=== PATIENT | female | born 1960 | race American Indian/Alaskan Native ===

== ENCOUNTER 2018-05-30 17:24 | Emergency (ER) | payer OTHER ==
[2018-05-30] MEDS ORDERED: Sodium Chloride 0.9% 1,000 ML IV ONE ×2 (19:23→21:55)
[2018-05-30] MEDS ORDERED: Ondansetron 4 MG/2 ML SDV IV ONE (19:23)
[2018-05-30] MEDS ORDERED: Sodium Chloride 0.9% 10 ML Syringe FLUSH PRN (19:23)
[2018-05-30] MEDS ORDERED: HYDROmorphone 0.5 MG/0.5 ML Syringe IVPUSH ONE ×2 (19:51→22:50)
[2018-05-30 20:29] LABS: ANION GAP 12.2; CHLORIDE,CL 97 mmol/L (101-111); SODIUM,NA 131 mmol/L (135-145)
[2018-05-30] MEDS ORDERED: Acetaminophen 325 MG Tab PO ONE (21:05)
--- NOTE | 2018-05-30 21:49 | EDM.PDOC ---
ED HPI GENERAL MEDICAL PROBLEM - General Chief Complaint: Upper Extremity Injury/Pain Stated Complaint: ELBOW PROBLEMS AND INFECTION ON LEG [id number] Time Seen by Provider: 05/30/18 19:18 Source of Information: Reports: Patient, RN, RN Notes Reviewed History Limitations: Reports: No Limitations - History of Present Illness INITIAL COMMENTS - FREE TEXT/NARRATIVE: Pt to ER with c/o chills, body aches, joint pain, since Thursday, progressively getting worse. Pt states last night she noticed her right elbow became inflamed, red, swollen, and painful. States all of her joints hurt, decreased appetite. Has been drinking broth and pedialyte. Patient admits to fever, chills, N/V/D, cough, headache. Denies chest pain, SOB. Onset: Gradual Right Elbow Pain Score (Numeric/FACES): 10 - Related Data Allergies Allergy/AdvReac Type Severity Reaction Status Date / Time shellfish derived Allergy Anaphylactic Verified 05/30/18 22:39 Shock Home Meds: Home Meds Albuterol Sulfate [Proair Hfa] 8.5 gm IH Q4H PRN 05/30/18 [History] Ranitidine HCl 150 mg PO BID 05/30/18 [History] Past Medical History - Past Health History Medical/Surgical History: Denies Medical/Surgical History HEENT History: Reports: Impaired Vision Other HEENT History: WEARS CORRECTIVE LENSES Cardiovascular History: Reports: None Respiratory History: Reports: Bronchitis, Recurrent Gastrointestinal History: Reports: GI Bleed Genitourinary History: Reports: None GRINDER LAP History: Reports: Fibroids, Musculoskeletal History: Reports: None Neurological History: Reports: None Psychiatric History: Reports: None Endocrine/Metabolic History: Reports: None Hematologic History: Reports: Blood Transfusion(s) Immunologic History: Reports: None Oncologic (Cancer) History: Reports: None Dermatologic History: Reports: Psoriasis Other Dermatologic History: DERMATITIS - Infectious Disease History Infectious Disease History: Reports: Chicken Pox - Past Surgical History Cardiovascular Surgical History: Reports: None Female Surgical History: Reports: Section Endocrine Surgical History: Reports: None Neurological Surgical History: Reports: None Musculoskeletal Surgical History: Reports: None Oncologic Surgical History: Reports: None Social & Family History - Family History HEENT: Reports: Impaired Vision Cardiac: Reports: CAD, Heart Murmur, Hypertension, Pacemaker Respiratory: Reports: COPD GI: Reports: None - Tobacco Use Smoking Status *Q: Former Smoker Used Tobacco, but Quit: Yes Month/Year Tobacco Last Used: 2011 - Caffeine Use Caffeine Use: Reports: Coffee Caffeine Use Comment: 4 CUPS TYPICAL - Recreational Drug Use Recreational Drug Use: No Review of Systems - Review of Systems Review Of Systems: ROS reveals no pertinent complaints other than HPI. ED EXAM, GENERAL - Physical Exam Exam: See Below Exam Limited By: No Limitations General Appearance: Alert, WD/WN, Moderate Distress Eye Exam: Bilateral Eye: EOMI, Normal Inspection Ears: Normal External Exam, Hearing Grossly Normal Nose: Normal Inspection Throat/Mouth: Normal Inspection, Normal Voice, No Airway Compromise Head: Atraumatic, Normocephalic Neck: Normal Inspection, Supple, Non-Tender, Full Range of Motion Respiratory/Chest: No Respiratory Distress, Lungs Clear, Normal Breath Sounds, No Accessory Muscle Use, Chest Non-Tender Cardiovascular: Normal Peripheral Pulses, Regular Rate, Rhythm, No Edema, No Gallop, No JVD, No Murmur, No Rub Peripheral Pulses: 2+: Radial (L), Radial (R) GI/Abdominal: Normal Bowel Sounds, Soft, Non-Tender (Female) Exam: Deferred Rectal (Female) Exam: Deferred Back Exam: Normal Inspection, Full Range of Motion Extremities: Normal Range of Motion, Joint Swelling (right elbow), Arm Pain ( right elbow), Increased Warmth (right elbow), Redness (right elbow) Neurological: Alert, Oriented, No Motor/Sensory Deficits Psychiatric: Anxious Skin Exam: Warm, Dry, Intact, Erythema (right elbow), Increased Warmth (right elbow) Lymphatic: No Adenopathy Course - Vital Signs Last Recorded V/S: Last Vital Signs Temp 98.2 F 05/31/18 00:30 Pulse 120 H 05/31/18 00:30 Resp 18 05/31/18 00:30 BP 107/65 05/31/18 00:30 Pulse Ox 98 05/31/18 00:30 - Orders/Labs/Meds Orders: Active Orders 24 hr Category Date Time Status Peripheral IV Care [RC] . DIRECTED Care 05/30/18 19:23 Active CULTURE BLOOD [BC] Stat Lab 05/30/18 19:30 Received CULTURE BLOOD [BC] Stat Lab 05/30/18 19:38 Received UA W/MICROSCOPIC [URIN] Stat Lab 05/30/18 21:11 Ordered Blood Culture x2 Reflex Set [OM.PC] Stat Oth 05/30/18 19:25 Ordered Peripheral IV Insertion Adult [OM.PC] Routine Ot 05/30/18 19:23 Ordered Labs: Laboratory Tests 05/30/18 05/30/18 05/30/18 Range/Units 19:30 19:30 19:30 WBC 17.4 H (5.0-10.0) 10^3/uL RBC 4.95 (4.2-5.4) 10^6/uL Hgb 14.3 (12.0-16.0) g/dL Hct 43.6 (37.0-47.0) % MCV 88.1 D (80-100) fL MCH 28.9 (27.0-34.0) pg MCHC 32.8 L (33.0-35.0) g/dL Plt Count 226 (150-450) 10^3/uL Neut % (Auto) 75.3 H (42.2-75.2) % Lymph % (Auto) 9.3 L (20.5-50.1) % [place] % (Auto) 15.3 H (2-8) % Eos % (Auto) 0.0 L (1.0-3.0) % Baso % (Auto) 0.1 (0.0-1.0) % Add Manual Diff Yes Neutrophils % (Manual) 77 H (42-75) % Lymphocytes % (Manual) 7 L (20-50) % Monocytes % (Manual) 16 H (2-8) % ESR (0-20) mm/hr Sodium 131 L (135-145) mmol/L Potassium 3.2 L (3.6-5.0) mmol/L Chloride 97 L (101-111) mmol/L Carbon Dioxide 25.0 (21.0-31.0) mmol/L Anion Gap 12.2 BUN 8 (7-18) mg/dL Creatinine 0.8 (0.6-1.3) mg/dL Est Cr Clr Drug Dosing 79.13 mL/min Estimated GFR (MDRD) > 60 BUN/Creatinine Ratio 10.00 Glucose 105 (74-105) mg/dL Lactic Acid 2.0 (0.5-2.2) mmol/L Calcium 8.2 L (8.4-10.2) mg/dl Total Bilirubin 1.0 (0.2-1.0) mg/dL AST 57 H (10-42) IU/L ALT 40 (10-60) IU/L Alkaline Phosphatase 112 (42-121) IU/L C-Reactive Protein (0.0-1.3) mg/dL Total Protein 8.0 (6.7-8.2) g/dl Albumin 2.9 L (3.2-5.5) g/dl Globulin 5.1 Albumin/Globulin Ratio 0.57 Urine Color (YELLOW) Urine Appearance (CLEAR) Urine pH (5.0-9.0) Ur Specific [place] (1.005-1.030) Urine Protein (NEGATIVE) Urine Glucose (UA) (NEGATIVE) Urine Ketones (NEGATIVE) Urine Occult Blood (NEGATIVE) Urine Nitrite (NEGATIVE) Urine Bilirubin (NEGATIVE) Urine Urobilinogen (0.2-1.0) mg/dL Ur Leukocyte Esterase (NEGATIVE) Urine RBC /HPF Urine WBC (0-5/HPF) /HPF Ur Epithelial Cells /HPF Urine Bacteria (0-FEW/HPF) /HPF Urinalysis Comment 05/30/18 05/30/18 05/30/18 Range/Units 19:30 19:30 21:11 WBC (5.0-10.0) 10^3/uL RBC (4.2-5.4) 10^6/uL Hgb (12.0-16.0) g/dL Hct (37.0-47.0) % MCV (80-100) fL MCH (27.0-34.0) pg MCHC (33.0-35.0) g/dL Plt Count (150-450) 10^3/uL Neut % (Auto) (42.2-75.2) % Lymph % (Auto) (20.5-50.1) % [place] % (Auto) (2-8) % Eos % (Auto) (1.0-3.0) % Baso % (Auto) (0.0-1.0) % Add Manual Diff Neutrophils % (Manual) (42-75) % Lymphocytes % (Manual) (20-50) % Monocytes % (Manual) (2-8) % ESR 34 H (0-20) mm/hr Sodium (135-145) mmol/L Potassium (3.6-5.0) mmol/L Chloride (101-111) mmol/L Carbon Dioxide (21.0-31.0) mmol/L Anion Gap BUN (7-18) mg/dL Creatinine (0.6-1.3) mg/dL Est Cr Clr Drug Dosing mL/min Estimated GFR (MDRD) BUN/Creatinine Ratio Glucose (74-105) mg/dL Lactic Acid (0.5-2.2) mmol/L Calcium (8.4-10.2) mg/dl Total Bilirubin (0.2-1.0) mg/dL AST (10-42) IU/L ALT (10-60) IU/L Alkaline Phosphatase (42-121) IU/L C-Reactive Protein 11.0 H (0.0-1.3) mg/dL Total Protein (6.7-8.2) g/dl Albumin (3.2-5.5) g/dl Globulin Albumin/Globulin Ratio Urine Color Yellow (YELLOW) Urine Appearance Slightly cloudy (CLEAR) Urine pH 6.0 (5.0-9.0) Ur Specific [place] <= 1.005 (1.005-1.030) Urine Protein 30 H (NEGATIVE) Urine Glucose (UA) Negative (NEGATIVE) Urine Ketones Negative (NEGATIVE) Urine Occult Blood Large H (NEGATIVE) Urine Nitrite Negative (NEGATIVE) Urine Bilirubin Negative (NEGATIVE) Urine Urobilinogen 0.2 (0.2-1.0) mg/dL Ur Leukocyte Esterase Trace H (NEGATIVE) Urine RBC >100 H /HPF Urine WBC 0-5 (0-5/HPF) /HPF Ur Epithelial Cells Moderate H /HPF Urine Bacteria Moderate H (0-FEW/HPF) /HPF Urinalysis Comment Meds: Medications Discontinued Medications Generic Name Dose Route Start Last Admin Trade Name Zacheryq PRN Reason Stop Dose Admin Acetaminophen 650 mg 05/30/18 21:05 05/30/18 21:26 Tylenol PO 05/30/18 21:06 650 mg NOW ONE Administration Hydromorphone HCl 0.5 mg 05/30/18 19:51 05/30/18 20:01 Dilaudid IVPUSH 05/30/18 19:52 0.5 mg ONETIME ONE Administration Hydromorphone HCl 0.5 mg 05/30/18 22:50 05/30/18 23:10 Dilaudid IVPUSH 05/30/18 22:51 0.5 mg ONETIME ONE Administration Sodium Chloride 1,000 mls @ 999 mls/hr 05/30/18 19:23 05/30/18 19:38 Normal Saline IV 05/30/18 20:23 999 mls/hr .BOLUS ONE Administration Piperacillin Sod/Tazobactam 100 mls @ 200 mls/hr 05/30/18 21:54 05/30/18 22: 02 Sod 3.375 gm/ Sodium Chloride IV 05/30/18 22:23 200 mls/hr ONETIME ONE Administration Vancomycin HCl 1 gm/ Sodium 250 mls @ 167 mls/hr 05/30/18 21:54 05/30/18 23: 05 Chloride IV 05/30/18 23:23 167 mls/hr ONETIME ONE Administration Sodium Chloride 1,000 mls @ 999 mls/hr 05/30/18 21:55 05/30/18 22:01 Normal Saline IV 05/30/18 22:55 999 mls/hr .BOLUS ONE Administration Ondansetron HCl 4 mg 05/30/18 19:23 05/30/18 19:37 Zofran IV 05/30/18 19:24 4 mg ONETIME ONE Administration Sodium Chloride 10 ml 05/30/18 19:23 05/30/18 19:38 Saline Flush FLUSH 10 ml ASDIRECTED PRN Administration Keep Vein Open - Radiology Interpretation Free Text/Narrative:: Right elbow CT: IMPRESSION: - No evidence for osteomyelitis or a septic arthritis on CT scan. MRI without and with contrast may be obtained if there is continuing clinical concern for these findings, if the patient has no contraindication. Findings suspicious for cellulitis/olecranon bursitis posterior to the elbow. - Incidental/non-acute findings are described above. THANK YOU FOR THIS CONSULTATION. Thank you for allowing us to participate in the care of your patient. Dictated and Authenticated by: Shy Dunlap MD 05/30/2018 9:47 PM Central Time ([place] & [place]) See rad report - Re-Assessments/Exams Free Text/Narrative Re-Assessment/Exam: 05/31/18 06:24 Dr. Nino called about the patient. After CT of the elbow, agreed to admit the patient acute inpatient. Admission then cancelled and Dr. Nino transferred the patient [facility]. Departure - Departure Time of Disposition: 21:53 Disposition: Home, Self-Care 01 Condition: Fair, Serious Clinical Impression: Cellulitis Qualifiers: Site of cellulitis: extremity Site of cellulitis of extremity: upper extremity Laterality: right Qualified Code(s): L03.113 - Cellulitis of right upper limb Bursitis Qualifiers: Bursitis location: elbow Elbow bursitis location: olecranon bursitis Laterality : right Qualified Code(s): M70.21 - Olecranon bursitis, right elbow - Discharge Information - My Orders Last 24 Hours: My Active Orders 05/30/18 19:23 Peripheral IV Care [RC] . DIRECTED Peripheral IV Insertion Adult [OM.PC] Routine 05/30/18 19:25 Blood Culture x2 Reflex Set [OM.PC] Stat 05/30/18 19:30 CULTURE BLOOD [BC] Stat 05/30/18 19:38 CULTURE BLOOD [BC] Stat 05/30/18 21:11 UA W/MICROSCOPIC [URIN] Stat - Assessment/Plan Last 24 Hours: My Active Orders 05/30/18 19:23 Peripheral IV Care [RC] . DIRECTED Peripheral IV Insertion Adult [OM.PC] Routine 05/30/18 19:25 Blood Culture x2 Reflex Set [OM.PC] Stat 05/30/18 19:30 CULTURE BLOOD [BC] Stat 05/30/18 19:38 CULTURE BLOOD [BC] Stat 05/30/18 21:11 UA W/MICROSCOPIC [URIN] Stat
[2018-05-30] MEDS ORDERED: Piperacillin/Tazobactam 3.375 GM in Sodium Chloride 0.9% 100 ML IV ONE (21:54)
[2018-05-30 21:59] VITALS: BP 107/65
--- NOTE | 2018-05-31 00:17 | PCM.SN ---
- Free Text/Narrative Note: I saw and evaluated Ms Burk, a 58-yo F with PMH of psoriasis who presented to the ED with fever (102.5 F) and right elbow swelling. WBC, ESR and CRP were all elevated. Due to concern for right elbow septic arthritis, transfer was arranged to [facility] for orthopedic evaluation, accepting Physician is Dr. Winslow. I discussed the case on phone with [facility] surgeon (Dr. Doty) and he agrees with this recommendation.
== END 2018-05-31 00:50 ==
LOC: DL.ED 17:24 → DL.MS 22:13 → UNDOADMIN 22:13 → UNDODISIN 05-31 00:50 → DL.ED 05-31 00:50
DX: L03.113 Cellulitis of right upper limb (principal); M70.21 Olecranon bursitis, right elbow; Z91.013 Allergy to seafood; Z87.891 Personal history of nicotine dependence
CPT/HCPCS: 36415; 73200; 80053; 81001; 83605; 85025; 85651; 86140; 87040; 87804; 96361; 96365; 96375; 99284; A9270; J1170; J2405; J2543; J3370; J7030; J7050

== ENCOUNTER 2018-12-07 16:24 | Emergency (ER) | payer OTHER ==
[2018-12-07] MEDS ORDERED: Sodium Chloride 0.9% 10 ML Syringe FLUSH PRN (17:19)
[2018-12-07] MEDS ORDERED: diphenhydrAMINE 50 MG/ML SDV IVPUSH ONE (17:20)
[2018-12-07] MEDS ORDERED: Morphine 4 MG/ML Syringe IVPUSH ONE (17:20)
[2018-12-07 18:13] LABS: CHLORIDE,CL 98 mmol/L (101-111); SODIUM,NA 133 mmol/L (135-145)
[2018-12-07] MEDS ORDERED: Iopamidol 612 MG/ML 75 ML Bottle IVPUSH ONE (18:33)
[2018-12-07] MEDS ORDERED: Morphine 2 MG/ML Syringe IVPUSH ONE (18:59)
--- NOTE | 2018-12-07 19:02 | EDM.PDOC ---
ED HPI GENERAL MEDICAL PROBLEM - General Chief Complaint: Abdominal Pain Stated Complaint: ABDOMINAL PAIN [id number] Time Seen by Provider: 12/07/18 17:19 Source of Information: Reports: Patient History Limitations: Reports: No Limitations - History of Present Illness INITIAL COMMENTS - FREE TEXT/NARRATIVE: patient comes emergency Department today with complaints of abdominal pain. Patient has an extensive history of a Whipple procedure that was done in the fall. She has a vertical incision that is still healing and draining a small amount. Yesterday when she was at work someone ran into her stomach with a door that was open. Since that time she has complained of a bandlike sensation of pain transversely across her abdomen. She's had no fever no chills. No nausea no vomiting. No hematuria dysuria or urinary frequency. No black or tarry stools. No change in the wound on her abdomen. Abdomen Pain Score (Numeric/FACES): 10 - Related Data Allergies Allergy/AdvReac Type Severity Reaction Status Date / Time shellfish derived Allergy Anaphylactic Verified 12/07/18 17:07 Shock Home Meds: Home Meds Ibuprofen [Motrin] 600 mg PO TID PRN #30 tablet 09/05/18 [Rx] LORazepam [Ativan] 0.5 mg PO Q6H PRN 09/28/18 [History] Magnesium Oxide 250 mg PO DAILY 09/28/18 [History] oxyCODONE 10 mg PO ASDIRECTED PRN 09/28/18 [History] Potassium Chloride 20 meq PO DAILY 09/30/18 [History] Acetaminophen/HYDROcodone [Emmett 325-10 MG] 1 tab PO Q6H PRN #30 tablet [Rx] Docusate Sodium [Colace] 100 mg PO DAILY PRN #30 capsule 10/13/18 [Rx] Albuterol Sulfate [Proair Hfa] 2 puff IH Q4HR PRN 12/07/18 [History] Multivitamin [Poly-Vitamin] 1 tab PO DAILY 12/07/18 [History] Past Medical History - Past Health History Medical/Surgical History: Denies Medical/Surgical History HEENT History: Reports: Impaired Vision Other HEENT History: WEARS CORRECTIVE LENSES Cardiovascular History: Reports: None Other Cardiovascular History: pt states murmur when young Respiratory History: Reports: Bronchitis, Recurrent Gastrointestinal History: Reports: GI Bleed Genitourinary History: Reports: None 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, Musculoskeletal History: Reports: Arthritis, Other (See Below) Neurological History: Reports: None Psychiatric History: Reports: None Endocrine/Metabolic History: Reports: None Hematologic History: Reports: Blood Transfusion(s) Immunologic History: Reports: None Oncologic (Cancer) History: Reports: None Other Oncologic History: Whipple procedure, 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 and r/o malignancy Dermatologic History: Reports: Psoriasis Other Dermatologic History: DERMATITIS - Infectious Disease History Infectious Disease History: Reports: Chicken Pox - Past Surgical History Cardiovascular Surgical History: Reports: None GI Surgical History: Reports: Other (See Below) Other GI Surgeries/Procedures: Whipple procedure Female Surgical History: Reports: Section Endocrine Surgical History: Reports: Other (See Below) Other Endocrine Surgeries/Procedures: States she had surgery Jul 2018 on her pancreaus Neurological Surgical History: Reports: None Musculoskeletal Surgical History: Reports: None, Other (See Below) Oncologic Surgical History: Reports: None Social & Family History - Family History Family Medical History: Noncontributory HEENT: Reports: Impaired Vision Cardiac: Reports: CAD, Heart Murmur, Hypertension, Pacemaker Respiratory: Reports: COPD GI: Reports: None - Tobacco Use Smoking Status *Q: Never Smoker Second Hand Smoke Exposure: No - Caffeine Use Caffeine Use: Reports: Coffee Caffeine Use Comment: 4 CUPS TYPICAL - Recreational Drug Use Recreational Drug Use: No - Living Situation & Occupation Living situation: Reports: with Family ED ROS GENERAL - Review of Systems Review Of Systems: ROS reveals no pertinent complaints other than HPI. ED EXAM, RENAL/ - Physical Exam Exam: See Below Exam Limited By: No Limitations General Appearance: Alert, WD/WN, No Apparent Distress Throat/Mouth: Normal Inspection, Normal Lips Head: Atraumatic, Normocephalic Neck: Normal Inspection, Supple, Non-Tender Respiratory/Chest: No Respiratory Distress, Lungs Clear, Normal Breath Sounds, No Accessory Muscle Use, Chest Non-Tender Cardiovascular: Normal Peripheral Pulses, Regular Rate, Rhythm GI/Abdominal: Normal Bowel Sounds, Soft, Tender (generalized tenderness around a well-healed vertical incision with a very small amount of drainage and no wound dehiscence otherwise. The drainage is clear. No rebound or guarding.) Back Exam: Normal Inspection, Full Range of Motion. No: CVA Tenderness (L), CVA Tenderness (R) Extremities: Normal Inspection, Normal Range of Motion Neurological: Alert, Oriented, Normal Cognition, No Motor/Sensory Deficits Psychiatric: Normal Affect, Normal Mood Skin Exam: Warm, Dry, Intact, Normal Color, No Rash Course - Vital Signs Last Recorded V/S: Last Vital Signs Temp 36.6 C 12/07/18 19:09 Pulse 82 12/07/18 19:09 Resp 16 12/07/18 19:09 BP 138/82 12/07/18 19:09 Pulse Ox 98 12/07/18 19:09 - Orders/Labs/Meds Labs: Laboratory Tests 12/07/18 12/07/18 12/07/18 Range/Units 17:47 17:47 17:47 WBC 6.1 (5.0-10.0) 10^3/uL RBC 3.87 L (4.2-5.4) 10^6/uL Hgb 10.9 L D (12.0-16.0) g/dL Hct 34.5 L (37.0-47.0) % MCV 89.1 D (80-100) fL MCH 28.2 (27.0-34.0) pg MCHC 31.6 L (33.0-35.0) g/dL Plt Count 346 D (150-450) 10^3/uL Neut % (Auto) 60.8 (42.2-75.2) % Lymph % (Auto) 31.6 (20.5-50.1) % [place] % (Auto) 5.7 (2-8) % Eos % (Auto) 1.6 (1.0-3.0) % Baso % (Auto) 0.3 (0.0-1.0) % Sodium 133 L (135-145) mmol/L Potassium 4.0 (3.6-5.0) mmol/L Chloride 98 L (101-111) mmol/L Carbon Dioxide 23.0 (21.0-31.0) mmol/L Anion Gap 16.0 BUN 11 (7-18) mg/dL Creatinine 0.6 (0.6-1.3) mg/dL Est Cr Clr Drug Dosing 91.09 mL/min Estimated GFR (MDRD) > 60 BUN/Creatinine Ratio 18.33 Glucose 99 (74-105) mg/dL Lactic Acid 1.1 (0.5-2.2) mmol/L Calcium 9.2 (8.4-10.2) mg/dl Total Bilirubin 0.5 (0.2-1.0) mg/dL AST 33 (10-42) IU/L ALT 12 (10-60) IU/L Alkaline Phosphatase 112 (42-121) IU/L C-Reactive Protein (0.0-1.3) mg/dL Total Protein 10.1 H (6.7-8.2) g/dl Albumin 4.1 (3.2-5.5) g/dl Globulin 6.0 Albumin/Globulin Ratio 0.68 Urine Color (YELLOW) Urine Appearance (CLEAR) Urine pH (5.0-9.0) Ur Specific [place] (1.005-1.030) Urine Protein (NEGATIVE) Urine Glucose (UA) (NEGATIVE) Urine Ketones (NEGATIVE) Urine Occult Blood (NEGATIVE) Urine Nitrite (NEGATIVE) Urine Bilirubin (NEGATIVE) Urine Urobilinogen (0.2-1.0) mg/dL Ur Leukocyte Esterase (NEGATIVE) Urine RBC /HPF Urine WBC (0-5/HPF) /HPF Ur Epithelial Cells /HPF Urine Bacteria (0-FEW/HPF) /HPF 12/07/18 12/07/18 Range/Units 17:47 18:40 WBC (5.0-10.0) 10^3/uL RBC (4.2-5.4) 10^6/uL Hgb (12.0-16.0) g/dL Hct (37.0-47.0) % MCV (80-100) fL MCH (27.0-34.0) pg MCHC (33.0-35.0) g/dL Plt Count (150-450) 10^3/uL Neut % (Auto) (42.2-75.2) % Lymph % (Auto) (20.5-50.1) % [place] % (Auto) (2-8) % Eos % (Auto) (1.0-3.0) % Baso % (Auto) (0.0-1.0) % Sodium (135-145) mmol/L Potassium (3.6-5.0) mmol/L Chloride (101-111) mmol/L Carbon Dioxide (21.0-31.0) mmol/L Anion Gap BUN (7-18) mg/dL Creatinine (0.6-1.3) mg/dL Est Cr Clr Drug Dosing mL/min Estimated GFR (MDRD) BUN/Creatinine Ratio Glucose (74-105) mg/dL Lactic Acid (0.5-2.2) mmol/L Calcium (8.4-10.2) mg/dl Total Bilirubin (0.2-1.0) mg/dL AST (10-42) IU/L ALT (10-60) IU/L Alkaline Phosphatase (42-121) IU/L C-Reactive Protein 0.6 (0.0-1.3) mg/dL Total Protein (6.7-8.2) g/dl Albumin (3.2-5.5) g/dl Globulin Albumin/Globulin Ratio Urine Color Yellow (YELLOW) Urine Appearance Clear (CLEAR) Urine pH 7.0 (5.0-9.0) Ur Specific [place] 1.010 (1.005-1.030) Urine Protein Negative (NEGATIVE) Urine Glucose (UA) Negative (NEGATIVE) Urine Ketones Negative (NEGATIVE) Urine Occult Blood Trace-lysed H (NEGATIVE) Urine Nitrite Negative (NEGATIVE) Urine Bilirubin Negative (NEGATIVE) Urine Urobilinogen 0.2 (0.2-1.0) mg/dL Ur Leukocyte Esterase Negative (NEGATIVE) Urine RBC 0-5 /HPF Urine WBC 0-5 (0-5/HPF) /HPF Ur Epithelial Cells Rare /HPF Urine Bacteria Rare (0-FEW/HPF) /HPF Meds: Medications Discontinued Medications Generic Name Dose Route Start Last Admin Trade Name Freq PRN Reason Stop Dose Admin Diphenhydramine HCl 25 mg 12/07/18 17:20 12/07/18 17:40 Benadryl IVPUSH 12/07/18 17:21 25 mg ONETIME ONE Administration Iopamidol 75 ml 12/07/18 18:33 12/07/18 18:35 Isovue-300 (61%) IVPUSH 12/07/18 18:34 75 ml ONETIME ONE Administration Morphine Sulfate 4 mg 12/07/18 17:20 12/07/18 17:39 Morphine IVPUSH 12/07/18 17:21 4 mg ONETIME ONE Administration Morphine Sulfate 2 mg 12/07/18 18:59 12/07/18 19:06 Morphine IVPUSH 12/07/18 19:00 2 mg ONETIME ONE Administration Sodium Chloride 10 ml 12/07/18 17:19 12/07/18 17:40 Saline Flush FLUSH 10 ml ASDIRECTED PRN Administration Keep Vein Open - Radiology Interpretation Free Text/Narrative:: CT abdomen and pelvis no acute findings per radiology. - Re-Assessments/Exams Free Text/Narrative Re-Assessment/Exam: 12/07/18 IV benadryl and morphine with good relief of the pain. Labs rather unremarkable CT scan as well. relayed to the patient that I'm unsure of what's causing her pain if she has a bruise or some type of cold muscle from this reported trauma. I do not find any pathology emergent at this time that needs intervention. Her wound appears healing very well and is not dehisced. She is comfortable with discharge at this time and her questions were answered. Departure - Departure Time of Disposition: 19:00 Disposition: Home, Self-Care 01 Clinical Impression: Abdominal pain - Discharge Information Instructions: Abdominal Pain, Adult, [id number], Pain Medicine Instructions, [id number] Referrals: PCP,None [Primary Care Provider] - Forms: ED Department Discharge Additional Instructions: Tylenol for pain. Contact Dr. Kody Morris office in the morning. Return to the ED if new or worsening symptoms.
[2018-12-07 19:10] VITALS: BP 138/82
== END 2018-12-07 20:44 | disposition home or self-care (01) ==
LOC: DL.ED 16:24
DX: R10.84 Generalized abdominal pain (principal); Z91.013 Allergy to seafood; Z79.899 Other long term (current) drug therapy
CPT/HCPCS: 36415; 74177; 80053; 81001; 83605; 85025; 86140; 96374; 96375; 96376; 99284; J1200; J2270; Q9967

== ENCOUNTER 2018-12-22 12:28 | Emergency (ER) | payer OTHER ==
[2018-12-22 12:41] VITALS: BP 131/65
--- NOTE | 2018-12-22 12:47 | EDM.PDOC ---
ED HPI GENERAL MEDICAL PROBLEM - General Stated Complaint: HURT LEFT HAND Time Seen by Provider: 12/22/18 12:35 Source of Information: Reports: Patient History Limitations: Reports: No Limitations - History of Present Illness INITIAL COMMENTS - FREE TEXT/NARRATIVE: This 58 yo female patient reports to the ED with right hand pain and swelling. The patient reports she was attempting to staple some papers yesterday at work and hit the tape dispenser. Since that time, the patient has had some swelling in her hand and pain in the area. The patient reports she has been icing the area since the incident. Onset Date: 12/21/18 Duration: Constant Location: Reports: Upper Extremity, Right Quality: Reports: Ache, Dull Severity: Mild Improves with: Reports: None Worsens with: Reports: Movement Right Hand Pain Score (Numeric/FACES): 2 - Related Data Allergies Allergy/AdvReac Type Severity Reaction Status Date / Time shellfish derived Allergy Anaphylactic Verified 12/22/18 12:36 Shock Home Meds: Home Meds Ibuprofen [Motrin] 600 mg PO TID PRN #30 tablet 09/05/18 [Rx] LORazepam [Ativan] 0.5 mg PO Q6H PRN 09/28/18 [History] Magnesium Oxide 250 mg PO DAILY 09/28/18 [History] oxyCODONE 10 mg PO ASDIRECTED PRN 09/28/18 [History] Potassium Chloride 20 meq PO DAILY 09/30/18 [History] Acetaminophen/HYDROcodone [Parker 325-10 MG] 1 tab PO Q6H PRN #30 tablet [Rx] Docusate Sodium [Colace] 100 mg PO DAILY PRN #30 capsule 10/13/18 [Rx] Albuterol Sulfate [Proair Hfa] 2 puff IH Q4HR PRN 12/07/18 [History] Multivitamin [Poly-Vitamin] 1 tab PO DAILY 12/07/18 [History] Acetaminophen [Tylenol] 650 mg PO Q4H PRN 12/22/18 [History] Past Medical History - Past Health History Medical/Surgical History: Denies Medical/Surgical History HEENT History: Reports: Impaired Vision Other HEENT History: WEARS CORRECTIVE LENSES Cardiovascular History: Reports: None Other Cardiovascular History: pt states murmur when young Respiratory History: Reports: Bronchitis, Recurrent Gastrointestinal History: Reports: GI Bleed Genitourinary History: Reports: None 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: Reports: Fibroids, Musculoskeletal History: Reports: Arthritis, Other (See Below) Neurological History: Reports: None Psychiatric History: Reports: None Endocrine/Metabolic History: Reports: None Hematologic History: Reports: Blood Transfusion(s) Immunologic History: Reports: None Oncologic (Cancer) History: Reports: None Other Oncologic History: Whipple procedure, 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 and r/o malignancy Dermatologic History: Reports: Psoriasis Other Dermatologic History: DERMATITIS - Infectious Disease History Infectious Disease History: Reports: Chicken Pox - Past Surgical History Cardiovascular Surgical History: Reports: None GI Surgical History: Reports: Other (See Below) Other GI Surgeries/Procedures: Whipple procedure Female Surgical History: Reports: Section Endocrine Surgical History: Reports: Other (See Below) Other Endocrine Surgeries/Procedures: States she had surgery Jul 2018 on her pancreaus Neurological Surgical History: Reports: None Musculoskeletal Surgical History: Reports: None, Other (See Below) Oncologic Surgical History: Reports: None Social & Family History - Family History Family Medical History: Noncontributory HEENT: Reports: Impaired Vision Cardiac: Reports: CAD, Heart Murmur, Hypertension, Pacemaker Respiratory: Reports: COPD GI: Reports: None - Caffeine Use Caffeine Use: Reports: Coffee Caffeine Use Comment: 4 CUPS TYPICAL - Living Situation & Occupation Living situation: Reports: with Family Review of Systems - Review of Systems Review Of Systems: ROS reveals no pertinent complaints other than HPI. ED EXAM, GENERAL - Physical Exam Exam: See Below Exam Limited By: No Limitations General Appearance: Alert, WD/WN, Mild Distress Eye Exam: Bilateral Eye: EOMI, Normal Inspection, PERRL Ears: Normal External Exam, Normal Canal, Hearing Grossly Normal, Normal TMs Nose: Normal Inspection Throat/Mouth: Normal Inspection, Normal Lips, Normal Teeth, Normal Gums, Normal Oropharynx, Normal Voice, No Airway Compromise Head: Atraumatic, Normocephalic Neck: Normal Inspection, Supple, Non-Tender, Full Range of Motion Respiratory/Chest: No Respiratory Distress, Lungs Clear, Normal Breath Sounds, No Accessory Muscle Use, Chest Non-Tender Cardiovascular: Normal Peripheral Pulses, Regular Rate, Rhythm, No Edema, No Gallop, No JVD, No Murmur, No Rub GI/Abdominal: Normal Bowel Sounds, Soft, Non-Tender, No Organomegaly, No Distention, No Abnormal Bruit, No Mass (Female) Exam: Deferred Rectal (Female) Exam: Deferred Back Exam: Normal Inspection, Full Range of Motion, NT Extremities: Other (right hand swelling and pain) Neurological: Alert, Oriented, CN II-XII Intact, Normal Cognition, Normal Gait, Normal Reflexes, No Motor/Sensory Deficits Psychiatric: Normal Affect, Normal Mood Skin Exam: Warm, Dry, Intact, Normal Color, No Rash Lymphatic: No Adenopathy Course - Vital Signs Last Recorded V/S: Last Vital Signs Temp 36.7 C 12/22/18 12:38 Pulse 86 12/22/18 12:38 Resp 16 12/22/18 12:38 BP 131/65 12/22/18 12:38 Pulse Ox 100 12/22/18 12:38 - Orders/Labs/Meds Orders: Active Orders 24 hr Category Date Time Status Hand Comp Min 3V Rt [CR] Urgent Exams 12/22/18 12:37 Ordered Departure - Departure Time of Disposition: 12:48 Disposition: Home, Self-Care 01 Condition: Fair Clinical Impression: Contusion of right hand Qualifiers: Encounter type: initial encounter Qualified Code(s): S60.221A - Contusion of right hand, initial encounter - Discharge Information *PRESCRIPTION DRUG MONITORING PROGRAM REVIEWED*: Not Applicable *COPY OF PRESCRIPTION DRUG MONITORING REPORT IN PATIENT KARISHMA: Not Applicable Instructions: Hand Contusion, [id number] Forms: ED Department Discharge Care Plan Goals: The patient was advised of the examination and x-ray results during the visit. The patient was given an JACKI wrap for support. The patient was encouraged to rest, ice and elevate her extremity for the next 24 hours. The patient may take Tylenol or ibuprofen for temporary symptom relief. If the patient has any additional symptoms the patient should visit her primary care facility or return to the emergency department. - My Orders Last 24 Hours: My Active Orders 12/22/18 12:37 Hand Comp Min 3V Rt [CR] Urgent - Assessment/Plan Last 24 Hours: My Active Orders 12/22/18 12:37 Hand Comp Min 3V Rt [CR] Urgent
== END 2018-12-22 13:05 | disposition home or self-care (01) ==
LOC: DL.ED 12:28
DX: S60.221A Contusion of right hand, initial encounter (principal); Z91.013 Allergy to seafood; Z79.899 Other long term (current) drug therapy; W22.8XXA Striking against or struck by other objects, initial encounter; Y99.0 Civilian activity done for income or pay
CPT/HCPCS: 73130-RT; 99283

== ENCOUNTER 2019-08-12 06:23 | Day surgery (SDC) | payer MEDICAID, OTHER ==
[~2019-08-12 06:23] MED LIST: Dextrose 5%-0.45% NaCl 1,000 ML IV SCH; Midazolam 1 MG/ML 2 ML SDV ONE; Sodium Chloride 0.9% 10 ML Syringe FLUSH PRN; fentaNYL 100 MCG/2 ML SDV ONE
[2019-08-12] MEDS ORDERED: fentaNYL 100 MCG/2 ML SDV IV ONE ×3 (06:24→07:19)
[2019-08-12] MEDS ORDERED: Midazolam 1 MG/ML 2 ML SDV IV ONE ×3 (06:24→07:21)
[2019-08-12 10:22] VITALS: BP 141/70; PULSE 57
--- NOTE | 2019-08-12 13:41 | OR ---
DATE: 08/12/2019 PROCEDURES: Esophagogastroduodenoscopy and multiple pinch biopsies. INSTRUMENT USED: [id number] Olympus video panendoscope. PREMEDICATIONS: No oral or topical anesthesia used. Fentanyl 100 mcg intravenous, Versed 1.5 mg intravenous. The procedure was done under pulse oximetry, BP recording, and monitor technician. INDICATION: The patient with previous pancreatic and gastric surgical procedures with persistent upper abdominal pain, bloating as well as heartburn, unexplained and not responsive to medical measures, on acid suppressant. The esophagogastroduodenoscopy is performed for detection of any active erosive lesions, malignancy also under consideration, H. pylori status to be determined, endoscopic hemostasis therapy if needed. PROCEDURE IN DETAIL: The scope was passed with ease. Adequate visualization of the esophagus was made from proximal to distal areas. No upper esophageal lesions identified. No distal esophageal stricture. No uphill or downhill esophageal varices. No Gwen-Parada tear. Grade A erosive changes were noted by Bracken criteria. No esophageal polyp or tumor mass identified. Z-line was seen at around 39 cm distal to the oral verge, configuration consistent with grade 1 by ZAP classification. No proximal gastric varices noted. Gastric fundus examination by retroflexion showed no polypoid lesions. No gastric ulcer, malignant mass, or vascular ectasia identified. Gastric surgical site was found to be quite deformed and dense adhesions around prevented further advancement of the instrument to visualize areas of the small bowel. Multiple pinch biopsies were taken from the distal and proximal gastric mucosa and sent for PyloriTek test for H. pylori, and if negative in an hour, the tissue is to be sent for histopathology. No bleeding was noted from any of the visualized areas at the completion of examination. Photographs were taken of the surgical site, gastric fundus, as well as distal esophagus. IMPRESSION: 1. Status post gastric surgery. 2. Anastomotic stricture. 3. Grade A gastroesophageal reflux disease. The patient tolerated the procedure well. [facility] /[id number]
== END 2019-08-12 09:41 | disposition home or self-care (01) ==
LOC: DL.ENDO 06:23
PROVIDERS: ATTEND Internal Medicine Gastroenterology
DX: K21.0 Gastro-esophageal reflux disease with esophagitis (principal); B96.81 Helicobacter pylori [H. pylori] as the cause of diseases classified elsewhere; K91.89 Other postprocedural complications and disorders of digestive system; L40.9 Psoriasis, unspecified; Z86.010 Personal history of colon polyps
CPT/HCPCS: 43239; 87077; J2250; J3010; J7042

== ENCOUNTER 2020-05-13 18:30 | Emergency (ER) | payer MEDICAID, OTHER ==
[2020-05-13] MEDS ORDERED: LORazepam 2 MG/ML SDV IVPUSH ONE (18:51)
[2020-05-13] MEDS ORDERED: Metoclopramide 10 MG/2 ML SDV IVPUSH ONE (18:51)
[2020-05-13] MEDS ORDERED: Sodium Chloride 0.9% 1,000 ML IV SCH (19:00)
[2020-05-13 19:01] VITALS: BP 157/96; PULSE 105
[2020-05-13 19:10] LABS: ANION GAP 13.9 mEq/L (7-13); CHLORIDE,CL 101 mmol/L (98-107); SODIUM,NA 138 mmol/L (136-145)
[2020-05-13] MEDS ORDERED: Iopamidol 612 MG/ML 100 ML Bottle IVPUSH ONE (20:19)
--- NOTE | 2020-05-13 21:30 | CT ---
PROCEDURE INFORMATION: Exam: CT Abdomen And Pelvis With Contrast Exam date and time: 05/13/2020 8:35 PM Age: 60 years old Clinical indication: Other: Pain; Additional info: Nausea vomiting pain, prior whipple TECHNIQUE: Imaging protocol: Computed tomography of the abdomen and pelvis with intravenous contrast. Radiation optimization: All CT scans at this facility use at least one of these dose optimization techniques: automated exposure control; mA and/or kV adjustment per patient size (includes targeted exams where dose is matched to clinical indication); or iterative reconstruction. Contrast material: [id number]; Contrast volume: 75 ml; Contrast route: INTRAVENOUS (IV); COMPARISON: MR Abdomen wo Cont 07/28/2019 9:05 AM FINDINGS: Lungs: No lung base abnormality noted. Liver: 8 mm low-density nodule noted in the right lobe of the liver, likely a benign simple hepatic cyst. Gallbladder and bile ducts: Previous cholecystectomy. Limited pneumobilia Pancreas: Punctate calcifications in the pancreas suggest old pancreatitis. Spleen: Normal. No splenomegaly. Adrenals: Normal. No mass. Kidneys and ureters: Normal. No hydronephrosis. Stomach and bowel: The hernia sac contains both large and small intestinal loops. No incarceration. No intestinal obstruction. Previous Whipple procedure. Appendix: Normal appendix. No appendicitis. Intraperitoneal space: See "Soft tissues" finding. Vasculature: Mild arterial sclerosis with multifocal plaque. Portal vein diameter approximate 17 mm, slightly higher than normal. Possible portal venous hypertension. Lymph nodes: Slight prominence of lymph nodes with minor stranding noted in this area of the amadou hepatis, nonspecific. Bladder: Unremarkable as visualized. Reproductive: Dominant unilocular cyst noted in the left ovary, 3.5 cm diameter. Such cysts are not normal in a postmenopausal patient. Bones/joints: Unremarkable. No acute fracture. Soft tissues: Abdominal wall hernia noted in the midline, with 7.2 cm hernia sac. Opening into this hernia sac is broad. IMPRESSION: 1. Small benign simple hepatic cyst in the liver, 8 mm diameter. 2. Cholecystectomy. Pneumobilia. Bile ducts normal in size. 3. Slight prominence of lymph nodes and stranding noted within the amadou hepatis area, possibly related to previous Whipple procedure. 4. Normal appendix. No appendicitis. 5. 3.5 cm simple cyst in the left ovary, not normal in a postmenopausal patient. This cyst was 18 mm in diameter in an MRI from July 2019. 6. Abdominal wall hernia detailed above, without incarceration or obstruction. 7. Old pancreatitis with punctate pancreatic calcifications. 8. No significant change in the CT exam compared to June 15, 2019. 9. No visible recurrent or residual malignancy.
--- NOTE | 2020-05-13 21:36 | EDM.PDOC ---
ED HPI GENERAL MEDICAL PROBLEM - General Chief Complaint: Gastrointestinal Problem Stated Complaint: VOMITING Time Seen by Provider: 05/13/20 18:50 Source of Information: Reports: Patient, RN History Limitations: Reports: No Limitations - History of Present Illness INITIAL COMMENTS - FREE TEXT/NARRATIVE: ED with c/o severe abdominal pain around old incision. Hx whipple procedure with complications. Is scheduled to have scar revision on Thursday in [place]. Yesterday weak. no fever or chills. No urinary c/o No cough. Today ate part of piece of toast and started vomiting. Unable to keep home medications down. Has not tried Zofran since it doesn't work. Pain worse with movement. Last BM yesterday. Middle Abdomen Pain Score (Numeric/FACES): 10 - Related Data Allergies Allergy/AdvReac Type Severity Reaction Status Date / Time shellfish derived Allergy Anaphylactic Verified 05/13/20 18:39 Shock Home Meds: Home Meds LORazepam [Ativan] 0.5 mg PO Q6H PRN 09/28/18 [History] Magnesium Oxide 250 mg PO DAILY 09/28/18 [History] Potassium Chloride 20 meq PO DAILY 09/30/18 [History] Docusate Sodium [Colace] 100 mg PO DAILY PRN #30 capsule 10/13/18 [Rx] Albuterol Sulfate [Proair Hfa] 2 puff IH Q4HR PRN 12/07/18 [History] Multivitamin [Poly-Vitamin] 1 tab PO DAILY 12/07/18 [History] Ibuprofen 600 mg PO TID PRN 08/11/19 [History] Lidocaine/Prilocaine [EMLA Crm] 1 squirt TOP ASDIRECTED 08/11/19 [History] Ondansetron [Zofran ODT] 4 mg PO Q4H PRN 08/11/19 [History] Triamcinolone Acetonide [Kenalog 0.1% Crm] 1 squirt TOP TID PRN 08/11/19 [History] diphenhydrAMINE [Benadryl] 25 mg PO Q6H 08/11/19 [History] Past Medical History - Past Health History Medical/Surgical History: Denies Medical/Surgical History HEENT History: Reports: Impaired Vision Other HEENT History: WEARS CORRECTIVE LENSES Cardiovascular History: Reports: Heart Murmur Other Cardiovascular History: pt states murmur when young Respiratory History: Reports: Bronchitis, Recurrent Gastrointestinal History: Reports: GI Bleed, Pancreatitis, Other (See Below) Other Gastrointestinal History: Chronic vomiting. Narrowing at stomach opening. Umbilical hernia. Significant abd. 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, Musculoskeletal History: Reports: Arthritis, Back Pain, Chronic Neurological History: Reports: None Psychiatric History: Reports: Anxiety Endocrine/Metabolic History: Reports: None Hematologic History: Reports: Blood Transfusion(s) Immunologic History: Reports: None Oncologic (Cancer) History: Reports: Pancreatic Other Oncologic History: Whipple procedure, 08/17/18 Dermatologic History: Reports: Psoriasis Other Dermatologic History: DERMATITIS - Infectious Disease History Infectious Disease History: Reports: Chicken Pox - Past Surgical History Head Surgeries/Procedures: Reports: None HEENT Surgical History: Reports: None Cardiovascular Surgical History: Reports: None Respiratory Surgical History: Reports: None GI Surgical History: Reports: EGD, Other (See Below) Other GI Surgeries/Procedures: Whipple procedure Female Surgical History: Reports: Section Other Female Surgeries/Procedures: x 3 Endocrine Surgical History: Reports: Other (See Below) Other Endocrine Surgeries/Procedures: States she had surgery Jul 2018 on her pancreaus, Whipple surgery Neurological Surgical History: Reports: None Musculoskeletal Surgical History: Reports: None Dermatological Surgical History: Reports: None Social & Family History - Family History Family Medical History: Noncontributory HEENT: Reports: Impaired Vision Cardiac: Reports: CAD, Heart Murmur, Hypertension, Pacemaker Respiratory: Reports: COPD GI: Reports: None - Tobacco Use Smoking Status *Q: Never Smoker Second Hand Smoke Exposure: No - Caffeine Use Caffeine Use: Reports: None Caffeine Use Comment: 3 CUPS TYPICAL - Recreational Drug Use Recreational Drug Use: No - Living Situation & Occupation Living situation: Reports: with Family ED ROS GENERAL - Review of Systems Review Of Systems: Comprehensive ROS is negative, except as noted in HPI. ED EXAM, GI/ABD - Physical Exam Exam: See Below Exam Limited By: No Limitations General Appearance: Alert, Anxious, Moderate Distress, Thin Eyes: Bilateral: EOMI Ears: Normal External Exam Nose: Normal Inspection Throat/Mouth: Normal Inspection, Normal Lips Head: Atraumatic, Normocephalic Neck: Normal Inspection Respiratory/Chest: No Respiratory Distress, Lungs Clear, Normal Breath Sounds Cardiovascular: Normal Peripheral Pulses, Regular Rate, Rhythm GI/Abdominal Exam: Normal Bowel Sounds, Soft, Tender (generalized greater midline near incision). No: Distended, Guarding, Mass Back Exam: Normal Inspection Extremities: Normal Inspection, Normal Range of Motion, Non-Tender Neurological: Alert, Oriented, Normal Cognition Psychiatric: Anxious Skin Exam: Warm, Dry, Intact, Normal Color, No Rash Course - Vital Signs Last Recorded V/S: Last Vital Signs Temp 98 F 05/13/20 18:32 Pulse 105 H 05/13/20 18:32 Resp 20 05/13/20 18:32 BP 157/96 H 05/13/20 18:32 Pulse Ox 97 05/13/20 18:32 - Orders/Labs/Meds Orders: Active Orders 24 hr Category Date Time Status CULTURE BLOOD [BC] Stat Lab 05/13/20 19:09 Received Labs: Laboratory Tests 05/13/20 05/13/20 05/13/20 Range/Units 18:44 18:44 18:44 WBC 8.9 (5.0-10.0) 10^3/uL RBC 4.27 (4.2-5.4) 10^6/uL Hgb 12.8 (12.0-16.0) g/dL Hct 38.7 (37.0-47.0) % MCV 90.6 (80-100) fL MCH 30.0 (27.0-34.0) pg MCHC 33.1 (33.0-35.0) g/dL Plt Count 299 (150-450) 10^3/uL Neut % (Auto) 68.5 (42.2-75.2) % Lymph % (Auto) 22.6 (20.5-50.1) % [place] % (Auto) 6.9 (2-8) % Eos % (Auto) 1.7 (1.0-3.0) % Baso % (Auto) 0.3 (0.0-1.0) % Sodium 138 (136-145) mmol/L Potassium 3.9 (3.5-5.1) mmol/L Chloride 101 (98-107) mmol/L Carbon Dioxide 27 (21-32) mmol/L Anion Gap 13.9 H (7-13) mEq/L BUN 6 L (7-18) mg/dL Creatinine 0.80 (0.55-1.02) mg/dL Est Cr Clr Drug Dosing 77.18 mL/min Estimated GFR (MDRD) > 60 BUN/Creatinine Ratio 7.5 (No establ ref range) Glucose 119 H (74-99) mg/dL Lactic Acid 1.3 (0.4-2.0) mmol/L Calcium 8.8 (8.5-10.1) mg/dL Magnesium 2.0 (1.8-2.4) mg/dL Total Bilirubin 0.8 (0.2-1.0) mg/dL AST 134 H (15-37) U/L ALT 75 H (14-59) U/L Alkaline Phosphatase 133 H (46-116) U/L Total Protein 9.3 H (6.4-8.2) g/dL Albumin 3.3 L (3.4-5.0) g/dL Globulin 6.0 Albumin/Globulin Ratio 0.55 Amylase 73 (25-115) U/L Lipase 246 (73-393) U/L Urine Color (YELLOW) Urine Appearance (CLEAR) Urine pH (5.0-9.0) Ur Specific [place] (1.005-1.030) Urine Protein (NEGATIVE) Urine Glucose (UA) (NEGATIVE) Urine Ketones (NEGATIVE) Urine Occult Blood (NEGATIVE) Urine Nitrite (NEGATIVE) Urine Bilirubin (NEGATIVE) Urine Urobilinogen (0.2-1.0) mg/dL Ur Leukocyte Esterase (NEGATIVE) Urine RBC /HPF Urine WBC (0-5/HPF) /HPF Ur Epithelial Cells (NOT SEEN) /HPF Amorphous Sediment (NOT SEEN) /HPF Urine Bacteria (0-FEW/HPF) /HPF Urine Mucus (NOT SEEN) /LPF Urine Opiates Screen (NEGATIVE) Ur Oxycodone Screen (NEGATIVE) Urine Methadone Screen (NEGATIVE) Ur Barbiturates Screen (NEGATIVE) U Tricyclic Antidepress (NEGATIVE) Ur Phencyclidine Scrn (NEGATIVE) Ur Amphetamine Screen (NEGATIVE) U Methamphetamines Scrn (NEGATIVE) Urine MDMA Screen (NEGATIVE) U Benzodiazepines Scrn (NEGATIVE) Urine Cocaine Screen (NEGATIVE) U Marijuana (THC) Screen (NEGATIVE) 05/13/20 05/13/20 Range/Units 19:34 19:34 WBC (5.0-10.0) 10^3/uL RBC (4.2-5.4) 10^6/uL Hgb (12.0-16.0) g/dL Hct (37.0-47.0) % MCV (80-100) fL MCH (27.0-34.0) pg MCHC (33.0-35.0) g/dL Plt Count (150-450) 10^3/uL Neut % (Auto) (42.2-75.2) % Lymph % (Auto) (20.5-50.1) % [place] % (Auto) (2-8) % Eos % (Auto) (1.0-3.0) % Baso % (Auto) (0.0-1.0) % Sodium (136-145) mmol/L Potassium (3.5-5.1) mmol/L Chloride (98-107) mmol/L Carbon Dioxide (21-32) mmol/L Anion Gap (7-13) mEq/L BUN (7-18) mg/dL Creatinine (0.55-1.02) mg/dL Est Cr Clr Drug Dosing mL/min Estimated GFR (MDRD) BUN/Creatinine Ratio (No establ ref range) Glucose (74-99) mg/dL Lactic Acid (0.4-2.0) mmol/L Calcium (8.5-10.1) mg/dL Magnesium (1.8-2.4) mg/dL Total Bilirubin (0.2-1.0) mg/dL AST (15-37) U/L ALT (14-59) U/L Alkaline Phosphatase (46-116) U/L Total Protein (6.4-8.2) g/dL Albumin (3.4-5.0) g/dL Globulin Albumin/Globulin Ratio Amylase (25-115) U/L Lipase (73-393) U/L Urine Color Dark yellow (YELLOW) Urine Appearance Slightly cloudy (CLEAR) Urine pH 7.0 (5.0-9.0) Ur Specific [place] 1.020 (1.005-1.030) Urine Protein Negative (NEGATIVE) Urine Glucose (UA) Negative (NEGATIVE) Urine Ketones Negative (NEGATIVE) Urine Occult Blood Moderate H (NEGATIVE) Urine Nitrite Negative (NEGATIVE) Urine Bilirubin Negative (NEGATIVE) Urine Urobilinogen 0.2 (0.2-1.0) mg/dL Ur Leukocyte Esterase Negative (NEGATIVE) Urine RBC 50-75 H /HPF Urine WBC 0-5 (0-5/HPF) /HPF Ur Epithelial Cells Few (NOT SEEN) /HPF Amorphous Sediment Rare (NOT SEEN) /HPF Urine Bacteria Few (0-FEW/HPF) /HPF Urine Mucus Few H (NOT SEEN) /LPF Urine Opiates Screen Negative (NEGATIVE) Ur Oxycodone Screen Negative (NEGATIVE) Urine Methadone Screen Negative (NEGATIVE) Ur Barbiturates Screen Negative (NEGATIVE) U Tricyclic Antidepress Negative (NEGATIVE) Ur Phencyclidine Scrn Negative (NEGATIVE) Ur Amphetamine Screen Negative (NEGATIVE) U Methamphetamines Scrn Negative (NEGATIVE) Urine MDMA Screen Negative (NEGATIVE) U Benzodiazepines Scrn Negative (NEGATIVE) Urine Cocaine Screen Negative (NEGATIVE) U Marijuana (THC) Screen Negative (NEGATIVE) Meds: Medications Discontinued Medications Generic Name Dose Route Start Last Admin Trade Name Freq PRN Reason Stop Dose Admin Sodium Chloride 1,000 mls @ 250 mls/hr 05/13/20 19:00 05/13/20 19:05 Normal Saline IV 250 mls/hr ASDIRECTED FABIEN Administration Iopamidol 100 ml 05/13/20 20:19 05/13/20 20:20 Isovue-300 (61%) IVPUSH 05/13/20 20:20 100 ml ONETIME ONE Administration Lorazepam 1 mg 05/13/20 18:51 05/13/20 19:08 Ativan IVPUSH 05/13/20 18:52 1 mg ONETIME ONE Administration Metoclopramide HCl 10 mg 05/13/20 18:51 05/13/20 19:05 Reglan IVPUSH 05/13/20 18:52 10 mg ONETIME ONE Administration - Re-Assessments/Exams Free Text/Narrative Re-Assessment/Exam: More relaxed, pain improved. Given results of CT. Home with family. Departure - Departure Time of Disposition: 21:33 Disposition: Home, Self-Care 01 Condition: Good Clinical Impression: Nausea and vomiting in adult Abdominal pain Qualifiers: Abdominal location: unspecified location Qualified Code(s): R10.9 - Unspecified abdominal pain - Discharge Information *PRESCRIPTION DRUG MONITORING PROGRAM REVIEWED*: No *COPY OF PRESCRIPTION DRUG MONITORING REPORT IN PATIENT KARISHMA: No Instructions: Abdominal Pain, Adult, [id number] Referrals: PCP,None [Primary Care Provider] - Forms: ED Department Discharge Additional Instructions: liquid diet follow up for surgery as scheduled home medication as ordered zofran 4mg ODT every 4 hours as needed for nausea Sepsis Event Note (ED) - Evaluation Sepsis Screening Result: No Definite Risk - Focused Exam Vital Signs: Vital Signs Temp Pulse Resp BP Pulse Ox 05/13/20 18:32 98 F 105 H 20 157/96 H 97 - My Orders Last 24 Hours: My Active Orders 05/13/20 19:09 CULTURE BLOOD [BC] Stat - Assessment/Plan Last 24 Hours: My Active Orders 05/13/20 19:09 CULTURE BLOOD [BC] Stat
== END 2020-05-13 21:45 | disposition home or self-care (01) ==
LOC: DL.ED 18:30
DX: R10.84 Generalized abdominal pain (principal); R11.2 Nausea with vomiting, unspecified; F41.9 Anxiety disorder, unspecified; M19.90 Unspecified osteoarthritis, unspecified site; Z98.890 Other specified postprocedural states; Z91.013 Allergy to seafood; Z79.899 Other long term (current) drug therapy
CPT/HCPCS: 36415; 74177; 80053; 80305; 81001; 82150; 83605; 83690; 83735; 85025; 87040; 96361; 96374; 96375; 99284; J2060; J2765; J7030; Q9967

== ENCOUNTER 2020-06-03 19:57 | Emergency (ER) | payer MEDICAID ==
[2020-06-03] MEDS ORDERED: Ondansetron 4 MG Tab.DIS PO ONE (19:58)
[2020-06-03 20:37] VITALS: BP 135/78; PULSE 108
[2020-06-03] MEDS ORDERED: Ondansetron 4 MG/2 ML SDV IVPUSH ONE ×2 (21:50→22:54)
[2020-06-03] MEDS ORDERED: Sodium Chloride 0.9% 1,000 ML IV ONE (21:50)
--- NOTE | 2020-06-03 22:02 | EDM.PDOC ---
<Werner Dang - Last Filed: 06/03/20 23:44> ED HPI GENERAL MEDICAL PROBLEM - General Chief Complaint: Gastrointestinal Problem Stated Complaint: VOMITING, THROWING UP. INCESIONS INFECTIONS Time Seen by Provider: 06/03/20 21:54 Source of Information: Reports: Patient History Limitations: Reports: No Limitations - History of Present Illness INITIAL COMMENTS - FREE TEXT/NARRATIVE: Patient arrives today due to abdominal pain, vomiting, and nausea. She is s/p herniorrhaphy on 05/15/2020. She complains that she has generalized abdominal pain, 10/10, and is associated with vomiting, nausea, and chills. She reports that her surgeon in [place] has referred her to a doctor for an EGD and it is planned for this week. She has Zofran at home but has not been able to take it due to the vomiting. 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 (see below) Other Treatments CURRENCY MACHINE OPERATOR: none Abdominal Pain Score (Numeric/FACES): 10 - Related Data Allergies Allergy/AdvReac Type Severity Reaction Status Date / Time shellfish derived Allergy Anaphylactic Verified 06/03/20 20:38 Shock Home Meds: Home Meds LORazepam [Ativan] 0.5 mg PO Q6H PRN 09/28/18 [History] Magnesium Oxide 250 mg PO DAILY 09/28/18 [History] Potassium Chloride 20 meq PO DAILY 09/30/18 [History] Docusate Sodium [Colace] 100 mg PO DAILY PRN #30 capsule 10/13/18 [Rx] Albuterol Sulfate [Proair Hfa] 2 puff IH Q4HR PRN 12/07/18 [History] Ibuprofen 600 mg PO TID PRN 08/11/19 [History] Ondansetron [Zofran ODT] 4 mg PO Q4H PRN 08/11/19 [History] Triamcinolone Acetonide [Kenalog 0.1% Crm] 1 squirt TOP TID PRN 08/11/19 [History] diphenhydrAMINE [Benadryl] 25 mg PO Q6H 08/11/19 [History] Calcium 06/03/20 [History] Vitamin D 06/03/20 [History] Past Medical History - Past Health History Medical/Surgical History: Denies Medical/Surgical History HEENT History: Reports: Impaired Vision Other HEENT History: WEARS CORRECTIVE LENSES Cardiovascular History: Reports: Heart Murmur Other Cardiovascular History: pt states murmur when young Respiratory History: Reports: Bronchitis, Recurrent Gastrointestinal History: Reports: GI Bleed, Pancreatitis, Other (See Below) Other Gastrointestinal History: Chronic vomiting. Narrowing at stomach opening. Umbilical hernia. Significant abd. 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 abdominal hernia repair 06/14/20 Female Surgical History: Reports: Section Other Female Surgeries/Procedures: x 3 Endocrine Surgical History: Reports: Other (See Below) Other Endocrine Surgeries/Procedures: States she had surgery Jul 2018 on her pancreaus, Whipple surgery Neurological Surgical History: Reports: None Musculoskeletal Surgical History: Reports: None Dermatological Surgical History: Reports: None Social & Family History - Family History Family Medical History: Noncontributory HEENT: Reports: Impaired Vision Cardiac: Reports: CAD, Heart Murmur, Hypertension, Pacemaker Respiratory: Reports: COPD GI: Reports: None - Tobacco Use Smoking Status *Q: Never Smoker - Caffeine Use Caffeine Use: Reports: None Caffeine Use Comment: 3 CUPS TYPICAL - Recreational Drug Use Recreational Drug Use: No - Living Situation & Occupation Living situation: Reports: with Family ED ROS GENERAL - Review of Systems Review Of Systems: Comprehensive ROS is negative, except as noted in HPI. ED EXAM, GI/ABD - Physical Exam Exam: See Below Exam Limited By: No Limitations General Appearance: Alert, WD/WN, Mild Distress Ears: Normal External Exam, Hearing Grossly Normal Nose: Normal Inspection, No Blood Head: Atraumatic Respiratory/Chest: No Respiratory Distress, Lungs Clear, Normal Breath Sounds Cardiovascular: Normal Peripheral Pulses, Regular Rate, Rhythm GI/Abdominal Exam: Normal Bowel Sounds, Soft, No Distention, Tender, Other (Generalized abdominal tenderness, midline surgical scar is nonerythematous with no signs of dehiscense or infection. Steri strips still on.) Extremities: Normal Inspection, Normal Range of Motion Neurological: Alert, Oriented, Normal Cognition Psychiatric: Tearful Skin Exam: Warm, Dry Course - Re-Assessments/Exams Free Text/Narrative Re-Assessment/Exam: 06/03/20 23:28 Patient was given 2 doses of 4mg IV Zofran. Nausea is much improved and will give 650mg PO tylenol at this time for pain. Departure - Departure Time of Disposition: 23:34 Disposition: Home, Self-Care 01 Clinical Impression: Nausea Abdominal pain Qualifiers: Abdominal location: unspecified location Qualified Code(s): R10.9 - Unspecified abdominal pain - Discharge Information *PRESCRIPTION DRUG MONITORING PROGRAM REVIEWED*: No *COPY OF PRESCRIPTION DRUG MONITORING REPORT IN PATIENT KARISHMA: No Instructions: Nausea and Vomiting, Adult, [id number] Referrals: PCP,None [Ordering Only Provider] - Forms: ED Department Discharge Additional Instructions: You have been prescribed Zofran 8mg every 8 hours as needed for Nausea. You can use Tylenol as needed for pain. It is very important that you make your future appointments for further evaluation of your abdominal pain. Sepsis Event Note (ED) - Evaluation Sepsis Screening Result: No Definite Risk <Letha Arriaga - Last Filed: 06/04/20 00:38> Course - Vital Signs Last Recorded V/S: Last Vital Signs Temp 97.4 F 06/03/20 20:14 Pulse 108 H 06/03/20 20:14 Resp 18 06/03/20 20:14 BP 135/78 06/03/20 20:14 Pulse Ox 96 06/03/20 20:14 - Orders/Labs/Meds Labs: Laboratory Tests 06/03/20 06/03/20 06/03/20 Range/Units 22:10 22:10 22:10 WBC 8.5 (5.0-10.0) 10^3/uL RBC 4.19 L (4.2-5.4) 10^6/uL Hgb 12.3 (12.0-16.0) g/dL Hct 37.1 (37.0-47.0) % MCV 88.5 (80-100) fL MCH 29.4 (27.0-34.0) pg MCHC 33.2 (33.0-35.0) g/dL Plt Count 324 (150-450) 10^3/uL Neut % (Auto) 67.5 (42.2-75.2) % Lymph % (Auto) 19.2 L (20.5-50.1) % [place] % (Auto) 10.3 H (2-8) % Eos % (Auto) 2.5 (1.0-3.0) % Baso % (Auto) 0.5 (0.0-1.0) % Sodium 132 L (136-145) mmol/L Potassium 3.2 L (3.5-5.1) mmol/L Chloride 94 L (98-107) mmol/L Carbon Dioxide 25 (21-32) mmol/L Anion Gap 16.2 H (7-13) mEq/L BUN 8 (7-18) mg/dL Creatinine 0.72 (0.55-1.02) mg/dL Est Cr Clr Drug Dosing 82.77 mL/min Estimated GFR (MDRD) > 60 BUN/Creatinine Ratio 11.1 (No establ ref range) Glucose 101 H (74-99) mg/dL Calcium 8.9 (8.5-10.1) mg/dL Total Bilirubin 0.6 (0.2-1.0) mg/dL AST 121 H (15-37) U/L ALT 112 H (14-59) U/L Alkaline Phosphatase 122 H (46-116) U/L Total Protein 9.1 H (6.4-8.2) g/dL Albumin 3.3 L (3.4-5.0) g/dL Globulin 5.8 Albumin/Globulin Ratio 0.57 Amylase 81 (25-115) U/L Lipase 367 (73-393) U/L Meds: Medications Discontinued Medications Generic Name Dose Route Start Last Admin Trade Name Freq PRN Reason Stop Dose Admin Acetaminophen 650 mg 06/03/20 22:32 06/03/20 23:32 Tylenol PO 06/03/20 22:33 650 mg NOW ONE Administration Acetaminophen Confirm 06/03/20 23:32 06/04/20 00:00 Tylenol Administered 06/03/20 23:33 Not Given Dose 650 mg .ROUTE .STK-MED ONE Sodium Chloride 1,000 mls @ 999 mls/hr 06/03/20 21:50 06/03/20 22:00 Normal Saline IV 06/03/20 22:50 999 mls/hr .BOLUS ONE Administration Ondansetron HCl 4 mg 06/03/20 21:50 06/03/20 22:08 Zofran IVPUSH 06/03/20 21:51 4 mg ONETIME ONE Administration Ondansetron HCl 4 mg 06/03/20 22:54 06/03/20 23:01 Zofran IVPUSH 06/03/20 22:55 4 mg ONETIME ONE Administration Ondansetron HCl Confirm 06/03/20 23:35 06/04/20 00:01 Zofran Odt Administered 06/03/20 23:36 Not Given Dose 8 mg .ROUTE .STK-MED ONE - Re-Assessments/Exams Free Text/Narrative Re-Assessment/Exam: 06/04/20 00:38 I saw and evaluated the patient. Discussed with resident and agree with residents findings and plan as documented in the residents note. Sepsis Event Note (ED) - Focused Exam Vital Signs: Vital Signs Temp Pulse Resp BP Pulse Ox 06/03/20 20:14 97.4 F 108 H 18 135/78 96
[2020-06-03] MEDS ORDERED: Acetaminophen 325 MG Tab PO ONE (22:32)
[2020-06-03 22:33] LABS: ANION GAP 16.2 mEq/L (7-13); CHLORIDE,CL 94 mmol/L (98-107); SODIUM,NA 132 mmol/L (136-145)
[2020-06-03] MEDS ORDERED: Acetaminophen 325 MG Tab ONE (23:32)
[2020-06-03] MEDS ORDERED: Ondansetron 4 MG Tab.DIS ONE (23:35)
== END 2020-06-03 23:57 | disposition home or self-care (01) ==
LOC: DL.ED 19:57
DX: R10.84 Generalized abdominal pain (principal); R11.2 Nausea with vomiting, unspecified; M19.90 Unspecified osteoarthritis, unspecified site; F41.9 Anxiety disorder, unspecified; Z91.013 Allergy to seafood; Z79.899 Other long term (current) drug therapy
CPT/HCPCS: 36415; 80053; 82150; 83690; 85025; 96361; 96374; 96376; 99284; A9270; J2405; J7030

== ENCOUNTER 2021-06-01 12:50 | Emergency (ER) | payer MEDICAID ==
[2021-06-01 13:17] VITALS: BP 131/49; PULSE 106
[2021-06-01 14:01] LABS: PTT,PARTIAL THROMBOPLSTIN TIME 26.5 SEC (22.0-34.0)
[2021-06-01 14:09] LABS: ANION GAP 15.9 mEq/L (7-13); CHLORIDE,CL 95 mmol/L (98-107); SODIUM,NA 131 mmol/L (136-145)
--- NOTE | 2021-06-01 14:22 | CR ---
PROCEDURE INFORMATION: Exam: XR Chest Exam date and time: 06/01/2021 1:36 PM Age: 61 years old Clinical indication: Chest wall pain; Additional info: Chest pain TECHNIQUE: Imaging protocol: XR of the chest. Views: 1 view. COMPARISON: CR Chest 1V Frontal 09/28/2018 2:44 PM FINDINGS: Lungs: There is mild increase in interstitial markings within the lungs. This is nonspecific. No pneumonia or pulmonary edema is present. Pleural spaces: Unremarkable. No pleural effusion. No pneumothorax. Heart/Mediastinum: Unremarkable. No cardiomegaly. Bones/joints: Unremarkable. IMPRESSION: Mild nonspecific chronic interstitial change. No acute cardiopulmonary disease present.
--- NOTE | 2021-06-01 15:36 | EDM.PDOC ---
ED HPI GENERAL MEDICAL PROBLEM - General Chief Complaint: Cardiovascular Problem Stated Complaint: [id number] VOMITING HEART DOESNT FEEL GOOD BEATING Time Seen by Provider: 06/01/21 13:30 Source of Information: Reports: Patient, RN, RN Notes Reviewed History Limitations: Reports: No Limitations - History of Present Illness INITIAL COMMENTS - FREE TEXT/NARRATIVE: Aubrey is a 61 y/o female who presents to the ED via personal vehicle with complaints of general malaise, vomiting, and palpitations. The patient reports her vomiting started approximately two days ago; she has vomited approximately three times in the past 48 hours. The patient reports history of vomiting without nausea due to multiple bowel and gastric surgeries. She states she noticed a rapid heartbeat this morning and became concerned that her electrolytes were low as that has happened to her in the past. She denies fever, shaking chills, syncope, vision changes, headache, weakness, chest pain, shortness of breath, nausea, constipation, diarrhea, or dysuria. The patient does attest to suprapubic tenderness. She has not taken any medication for her symptoms. She denies tobacco, alcohol, or recreational drug use. Generalized Pain Score (Numeric/FACES): 8 - Related Data Allergies Allergy/AdvReac Type Severity Reaction Status Date / Time shellfish derived Allergy Anaphylactic Verified 06/01/21 13:17 Shock Home Meds: Home Meds LORazepam [Ativan] 0.5 mg PO Q6H PRN 09/28/18 [History] Magnesium Oxide 250 mg PO DAILY 09/28/18 [History] Potassium Chloride 20 meq PO DAILY 09/30/18 [History] Docusate Sodium [Colace] 100 mg PO DAILY PRN #30 capsule 10/13/18 [Rx] Albuterol Sulfate [Proair Hfa] 2 puff IH Q4HR PRN 12/07/18 [History] Ondansetron [Zofran ODT] 4 mg PO Q4H PRN 08/11/19 [History] Triamcinolone Acetonide [Kenalog 0.1% Crm] 1 squirt TOP TID PRN 08/11/19 [History] diphenhydrAMINE [Benadryl] 25 mg PO Q6H 08/11/19 [History] Calcium 1 tab PO DAILY 06/03/20 [History] Vitamin D 06/03/20 [History] Past Medical History - Past Health History Medical/Surgical History: Denies Medical/Surgical History HEENT History: Reports: Impaired Vision Other HEENT History: WEARS CORRECTIVE LENSES Cardiovascular History: Reports: Heart Murmur Other Cardiovascular History: pt states murmur when young Respiratory History: Reports: Bronchitis, Recurrent Gastrointestinal History: Reports: GI Bleed, Pancreatitis, Other (See Below) Other Gastrointestinal History: Chronic vomiting. Narrowing at stomach opening. Umbilical hernia. Significant abd. 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 abdominal hernia repair 06/14/20 Female Surgical History: Reports: Section Other Female Surgeries/Procedures: x 3 Endocrine Surgical History: Reports: Other (See Below) Other Endocrine Surgeries/Procedures: States she had surgery Jul 2018 on her pancreaus, Whipple surgery Neurological Surgical History: Reports: None Musculoskeletal Surgical History: Reports: None Oncologic Surgical History: Reports: None Dermatological Surgical History: Reports: None Social & Family History - Family History Family Medical History: No Pertinent Family History HEENT: Reports: Impaired Vision Cardiac: Reports: CAD, Heart Murmur, Hypertension, Pacemaker Respiratory: Reports: COPD GI: Reports: None - Tobacco Use Tobacco Use Status *Q: Never Tobacco User Second Hand Smoke Exposure: No - Caffeine Use Caffeine Use: Reports: Coffee Caffeine Use Comment: 3 CUPS TYPICAL - Recreational Drug Use Recreational Drug Use: No - Living Situation & Occupation Living situation: Reports: with Family ED ROS GENERAL - Review of Systems Review Of Systems: Comprehensive ROS is negative, except as noted in HPI. ED EXAM, GENERAL - Physical Exam Exam: See Below Exam Limited By: No Limitations General Appearance: Alert, No Apparent Distress Eye Exam: Bilateral Eye: EOMI, Normal Inspection, PERRL Ears: Normal External Exam, Hearing Grossly Normal Nose: Normal Inspection, Normal Mucosa, No Blood Throat/Mouth: Normal Inspection, Normal Lips, Normal Teeth, Normal Gums, Normal Oropharynx, Normal Voice, No Airway Compromise Head: Atraumatic, Normocephalic Neck: Normal Inspection, Supple, Non-Tender, Full Range of Motion. No: Lymphadenopathy (L), Lymphadenopathy (R) Respiratory/Chest: No Respiratory Distress, Lungs Clear, Normal Breath Sounds, No Accessory Muscle Use, Chest Non-Tender Cardiovascular: Normal Peripheral Pulses, Regular Rate, Rhythm, No Edema, No Gallop, No JVD, No Murmur, No Rub Peripheral Pulses: 2+: Radial (L), Radial (R), Dorsalis Pedis (L), Dorsalis Pedis (R) GI/Abdominal: Normal Bowel Sounds, Soft, No Distention, No Abnormal Bruit, No Mass, Pelvis Stable, Tender (To LLQ and suprapubic region), Other (Multiple old surgical scars) (Female) Exam: Deferred Rectal (Female) Exam: Deferred Back Exam: Normal Inspection, Full Range of Motion. No: CVA Tenderness (L), CVA Tenderness (R) Extremities: Normal Inspection, Normal Range of Motion, Non-Tender, Normal Capillary Refill, No Pedal Edema Neurological: Alert, Oriented, CN II-XII Intact, Normal Cognition, Normal Gait, No Motor/Sensory Deficits Psychiatric: Normal Affect, Normal Mood Skin Exam: Warm, Dry, Intact, Normal Color, No Rash. No: Cyanosis, Jaundice, Mottled, Pallor #1 Interpretation EKG Date: 06/01/21 Time: 13:13 Rhythm: Other (Sinus Tachycardia) Rate (Beats/Min): 101 Clear: Normal P-Wave: Present QRS: Normal ST-T: Normal QT: Normal TN/PQ Interval: 0.136 Comparison: No Change ((09-13-18)) EKG Interpretation Comments: NT; q-wave in III and aVF; No evidence of acute myocardial ischemia Course - Vital Signs Last Recorded V/S: Last Vital Signs Temp 97.3 F 06/01/21 13:03 Pulse 106 H 06/01/21 13:03 Resp 20 06/01/21 13:03 BP 131/49 L 06/01/21 13:03 Pulse Ox 98 06/01/21 13:03 - Orders/Labs/Meds Labs: Laboratory Tests 06/01/21 06/01/21 06/01/21 Range/Units 13:31 13:31 13:31 WBC 8.2 (5.0-10.0) 10^3/uL RBC 3.88 L (4.2-5.4) 10^6/uL Hgb 11.5 L (12.0-16.0) g/dL Hct 34.6 L (37.0-47.0) % MCV 89.2 (80-100) fL MCH 29.6 (27.0-34.0) pg MCHC 33.2 (33.0-35.0) g/dL Plt Count 274 (150-450) 10^3/uL Neut % (Auto) 70.2 (42.2-75.2) % Lymph % (Auto) 20.5 (20.5-50.1) % Hand % (Auto) 7.6 (2-8) % Eos % (Auto) 1.3 (1.0-3.0) % Baso % (Auto) 0.4 (0.0-1.0) % PT 11.4 (9.0-12.0) SEC INR 1.1 (0.9-1.2) APTT 26.5 (22.0-34.0) SEC Sodium 131 L (136-145) mmol/L Potassium 3.9 (3.5-5.1) mmol/L Chloride 95 L (98-107) mmol/L Carbon Dioxide 24 (21-32) mmol/L Anion Gap 15.9 H (7-13) mEq/L BUN 5 L (7-18) mg/dL Creatinine 0.90 (0.55-1.02) mg/dL Est Cr Clr Drug Dosing 65.38 mL/min Estimated GFR (MDRD) > 60 BUN/Creatinine Ratio 5.6 (No establ ref range) Glucose 114 H (70-99) mg/dL Lactic Acid (0.4-2.0) mmol/L Calcium 8.5 (8.5-10.1) mg/dL Magnesium 1.7 L (1.8-2.4) mg/dL Total Bilirubin 0.9 (0.2-1.0) mg/dL AST 85 H (15-37) U/L ALT 24 (14-59) U/L Alkaline Phosphatase 151 H (46-116) U/L Troponin I High Sens 7 (<=51) pg/mL C-Reactive Protein 0.9 (0.0-0.9) mg/dL B-Natriuretic Peptide 122 H (0-100) pg/ml Total Protein 9.3 H (6.4-8.2) g/dL Albumin 2.7 L (3.4-5.0) g/dL Globulin 6.6 Albumin/Globulin Ratio 0.41 Urine Color (YELLOW) Urine Appearance (CLEAR) Urine pH (5.0-9.0) Ur Specific [place] (1.005-1.030) Urine Protein (NEGATIVE) Urine Glucose (UA) (NEGATIVE) Urine Ketones (NEGATIVE) Urine Occult Blood (NEGATIVE) Urine Nitrite (NEGATIVE) Urine Bilirubin (NEGATIVE) Urine Urobilinogen (0.2-1.0) mg/dL Ur Leukocyte Esterase (NEGATIVE) Urine RBC /HPF Urine WBC (0-5/HPF) /HPF Ur Epithelial Cells (NOT SEEN) /HPF Urine Bacteria (0-FEW/HPF) /HPF Urine Opiates Screen (NEGATIVE) Ur Oxycodone Screen (NEGATIVE) Urine Methadone Screen (NEGATIVE) Ur Barbiturates Screen (NEGATIVE) U Tricyclic Antidepress (NEGATIVE) Ur Phencyclidine Scrn (NEGATIVE) Ur Amphetamine Screen (NEGATIVE) U Methamphetamines Scrn (NEGATIVE) Urine MDMA Screen (NEGATIVE) U Benzodiazepines Scrn (NEGATIVE) Urine Cocaine Screen (NEGATIVE) U Marijuana (THC) Screen (NEGATIVE) Ethyl Alcohol < 3 (0) mg/dL 06/01/21 06/01/21 06/01/21 Range/Units 13:31 15:50 15:50 WBC (5.0-10.0) 10^3/uL RBC (4.2-5.4) 10^6/uL Hgb (12.0-16.0) g/dL Hct (37.0-47.0) % MCV (80-100) fL MCH (27.0-34.0) pg MCHC (33.0-35.0) g/dL Plt Count (150-450) 10^3/uL Neut % (Auto) (42.2-75.2) % Lymph % (Auto) (20.5-50.1) % Hand % (Auto) (2-8) % Eos % (Auto) (1.0-3.0) % Baso % (Auto) (0.0-1.0) % PT (9.0-12.0) SEC INR (0.9-1.2) APTT (22.0-34.0) SEC Sodium (136-145) mmol/L Potassium (3.5-5.1) mmol/L Chloride (98-107) mmol/L Carbon Dioxide (21-32) mmol/L Anion Gap (7-13) mEq/L BUN (7-18) mg/dL Creatinine (0.55-1.02) mg/dL Est Cr Clr Drug Dosing mL/min Estimated GFR (MDRD) BUN/Creatinine Ratio (No establ ref range) Glucose (70-99) mg/dL Lactic Acid 1.9 (0.4-2.0) mmol/L Calcium (8.5-10.1) mg/dL Magnesium (1.8-2.4) mg/dL Total Bilirubin (0.2-1.0) mg/dL AST (15-37) U/L ALT (14-59) U/L Alkaline Phosphatase (46-116) U/L Troponin I High Sens (<=51) pg/mL C-Reactive Protein (0.0-0.9) mg/dL B-Natriuretic Peptide (0-100) pg/ml Total Protein (6.4-8.2) g/dL Albumin (3.4-5.0) g/dL Globulin Albumin/Globulin Ratio Urine Color Yellow (YELLOW) Urine Appearance Slightly cloudy (CLEAR) Urine pH 7.0 (5.0-9.0) Ur Specific [place] 1.015 (1.005-1.030) Urine Protein Negative (NEGATIVE) Urine Glucose (UA) Negative (NEGATIVE) Urine Ketones Negative (NEGATIVE) Urine Occult Blood Moderate H (NEGATIVE) Urine Nitrite Negative (NEGATIVE) Urine Bilirubin Negative (NEGATIVE) Urine Urobilinogen 1.0 (0.2-1.0) mg/dL Ur Leukocyte Esterase Trace H (NEGATIVE) Urine RBC 20-30 H /HPF Urine WBC 0-5 (0-5/HPF) /HPF Ur Epithelial Cells Moderate H (NOT SEEN) /HPF Urine Bacteria Few (0-FEW/HPF) /HPF Urine Opiates Screen Negative (NEGATIVE) Ur Oxycodone Screen Negative (NEGATIVE) Urine Methadone Screen Negative (NEGATIVE) Ur Barbiturates Screen Negative (NEGATIVE) U Tricyclic Antidepress Negative (NEGATIVE) Ur Phencyclidine Scrn Negative (NEGATIVE) Ur Amphetamine Screen Negative (NEGATIVE) U Methamphetamines Scrn Negative (NEGATIVE) Urine MDMA Screen Negative (NEGATIVE) U Benzodiazepines Scrn Negative (NEGATIVE) Urine Cocaine Screen Negative (NEGATIVE) U Marijuana (THC) Screen Negative (NEGATIVE) Ethyl Alcohol (0) mg/dL Meds: Medications Discontinued Medications Generic Name Dose Route Start Last Admin Trade Name Freq PRN Reason Stop Dose Admin Ciprofloxacin 500 mg 06/01/21 16:38 06/01/21 16:56 Ciprofloxacin 500 Mg Tab PO 06/01/21 16:39 500 mg ONETIME ONE Administration - Radiology Interpretation Free Text/Narrative:: [facility] Final Radiology Report Call: [phone] assistance Online chat: [email or web address] Name: AUBREY ELLIOTT Age: 61Years F Date: 06/01/2021 SSN: -- : 1960 Study: CR CHEST 1V FRONTAL Requesting Physician: Mariana Ramachandran Images: 1 Addl Studies: Provided Clinical History: Chest pain Contrast: Contrast Medium: Contrast Amount: Contrast Method: CONFIDENTIALITY STATEMENT This report is intended only for use by the referring physician, and only in accordance with law. If you received this in error, call [phone]. Page 1 of 1 PROCEDURE INFORMATION: Exam: XR Chest Exam date and time: 06/01/2021 1:36 PM Age: 61 years old Clinical indication: Chest wall pain; Additional info: Chest pain TECHNIQUE: Imaging protocol: XR of the chest. Views: 1 view. COMPARISON: CR Chest 1V Frontal 09/28/2018 2:44 PM FINDINGS: Lungs: There is mild increase in interstitial markings within the lungs. This is nonspecific. No pneumonia or pulmonary edema is present. Pleural spaces: Unremarkable. No pleural effusion. No pneumothorax. Heart/Mediastinum: Unremarkable. No cardiomegaly. Bones/joints: Unremarkable. IMPRESSION: Mild nonspecific chronic interstitial change. No acute cardiopulmonary disease present. Thank you for allowing us to participate in the care of your patient. Dictated and Authenticated by: Daniel Kramer MD 06/01/2021 2:21 PM Central Time ([place] & [place]) - Re-Assessments/Exams Free Text/Narrative Re-Assessment/Exam: 06/01/21 Findings of examination and lab work reviewed with patient. Will treat UTI with Cipro. Discussed supportive cares for UTI, as well as dietary options for mild hyponatremia and hypomagnesemia. Red flag signs and symptoms which would warrant reevaluation reviewed. Patient verbalized understanding and agreement with the plan of care. Departure - Departure Time of Disposition: 16:39 Disposition: Home, Self-Care 01 Condition: Good Clinical Impression: Hyponatremia, Hypomagnesemia Urinary tract infection Qualifiers: Urinary tract infection type: acute cystitis Hematuria presence: with hematuria Qualified Code(s): N30.01 - Acute cystitis with hematuria Vomiting Qualifiers: Vomiting type: unspecified Vomiting Intractability: non-intractable Nausea presence: without nausea Qualified Code(s): R11.11 - Vomiting without nausea Instructions: Hyponatremia, Hypomagnesemia Referrals: PCP,None [Primary Care Provider] - Forms: ED Department Discharge Additional Instructions: Rx: Ciprofloxacin 1.) Take all of your antibiotic until gone, even as symptoms improve. 2.) Eat foods high in magnesium. 3.) Continue taking your previously prescribed Zofran. 4.) Follow up with primary care provider early this coming week regarding today's visit, or return to the emergency department should symptoms worsen. Sepsis Event Note (ED) - Evaluation Sepsis Screening Result: No Definite Risk
[2021-06-01] MEDS ORDERED: Ciprofloxacin 500 MG Tab PO ONE (16:38)
== END 2021-06-01 17:00 | disposition home or self-care (01) ==
LOC: DL.ED 12:50
DX: N30.01 Acute cystitis with hematuria (principal); R11.11 Vomiting without nausea; E87.1 Hypo-osmolality and hyponatremia; E83.42 Hypomagnesemia; Z91.013 Allergy to seafood
CPT/HCPCS: 36415; 71045; 80053; 80305; 80307; 81001; 83605; 83735; 83880; 84484; 85025; 85610; 85730; 86140; 87086; 93005; 99285; A9270

== ENCOUNTER 2021-07-07 11:49 | Emergency (ER) | payer MEDICAID ==
[2021-07-07 12:50] VITALS: BP 109/58; PULSE 95
[2021-07-07] MEDS ORDERED: Ondansetron 4 MG/2 ML SDV IVPUSH ONE (13:02)
[2021-07-07] MEDS ORDERED: HYDROmorphone 1 MG/ML Syringe IVPUSH ONE (13:02)
--- NOTE | 2021-07-07 13:02 | CR ---
PROCEDURE INFORMATION: Exam: XR Left Knee Exam date and time: 07/07/2021 12:21 PM Age: 61 years old Clinical indication: Injury or trauma; Fall; Fracture, traumatic; Closed fracture; Fibula; Left; Injury date: Today; Additional info: Fall onto left knee; Pain with weight bearing TECHNIQUE: Imaging protocol: XR Left knee. Views: 1 or 2 views. COMPARISON: No relevant prior studies available. FINDINGS: Bones/joints: An obliquely oriented fracture of the proximal fibula is identified. This is approximately 5 cm below the proximal fibular head. The fibular fracture is mildly offset and angulated. There is diffuse decrease in overall bone mineral density. No tibia fractures are identified. Soft tissues: Normal. IMPRESSION: 1. Mildly offset and angulated proximal fibular fracture. The proximal tibia appears to be intact.
--- NOTE | 2021-07-07 13:27 | EDM.PDOC ---
ED HPI GENERAL MEDICAL PROBLEM - General Chief Complaint: Lower Extremity Injury/Pain Stated Complaint: FELL AND HURT LEFT LEG [id number] Time Seen by Provider: 07/07/21 13:00 Source of Information: Reports: Patient, RN, RN Notes Reviewed History Limitations: Reports: No Limitations - History of Present Illness INITIAL COMMENTS - FREE TEXT/NARRATIVE: Aubrey is a 61 y/o female who presents to the ED via personal vehicle with complaints of left lateral knee pain. The patient reports she sustained a fall onto her right knee last evening while walking after feeling a "pop" in her left knee. 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 She reports she is supposed to ambulate with a FWW but does not. She denies loss of consciousness during the fall and did not strike her head. Left Lower Leg Pain Score (Numeric/FACES): 8 - Related Data Allergies Allergy/AdvReac Type Severity Reaction Status Date / Time shellfish derived Allergy Anaphylactic Verified 06/01/21 13:17 Shock Home Meds: Home Meds LORazepam [Ativan] 0.5 mg PO Q6H PRN 09/28/18 [History] Magnesium Oxide 250 mg PO DAILY 09/28/18 [History] Potassium Chloride 20 meq PO DAILY 09/30/18 [History] Docusate Sodium [Colace] 100 mg PO DAILY PRN #30 capsule 10/13/18 [Rx] Albuterol Sulfate [Proair Hfa] 2 puff IH Q4HR PRN 12/07/18 [History] Ondansetron [Zofran ODT] 4 mg PO Q4H PRN 08/11/19 [History] Triamcinolone Acetonide [Kenalog 0.1% Crm] 1 squirt TOP TID PRN 08/11/19 [History] diphenhydrAMINE [Benadryl] 25 mg PO Q6H 08/11/19 [History] Calcium 1 tab PO DAILY 06/03/20 [History] Vitamin D 06/03/20 [History] Past Medical History - Past Health History Medical/Surgical History: Denies Medical/Surgical History HEENT History: Reports: Impaired Vision Other HEENT History: WEARS CORRECTIVE LENSES Cardiovascular History: Reports: Heart Murmur Other Cardiovascular History: pt states murmur when young Respiratory History: Reports: Bronchitis, Recurrent Gastrointestinal History: Reports: GI Bleed, Pancreatitis, Other (See Below) Other Gastrointestinal History: Chronic vomiting. Narrowing at stomach opening. Umbilical hernia. Significant abd. 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 History: Reports: Fibroids, Musculoskeletal History: Reports: Arthritis, Back Pain, Chronic Neurological History: Reports: None Psychiatric History: Reports: Anxiety Endocrine/Metabolic History: Reports: None Hematologic History: Reports: Blood Transfusion(s) Immunologic History: Reports: None Oncologic (Cancer) History: Reports: Pancreatic Other Oncologic History: Whipple procedure, 08/17/18 Dermatologic History: Reports: Psoriasis Other Dermatologic History: DERMATITIS - Infectious Disease History Infectious Disease History: Reports: Chicken Pox - Past Surgical History Head Surgeries/Procedures: Reports: None HEENT Surgical History: Reports: None Cardiovascular Surgical History: Reports: None Respiratory Surgical History: Reports: None GI Surgical History: Reports: EGD, Hernia, Abdominal, Other (See Below) Other GI Surgeries/Procedures: Whipple procedure. abdominal hernia repair 06/14/20 Female Surgical History: Reports: Section Other Female Surgeries/Procedures: x 3 Endocrine Surgical History: Reports: Other (See Below) Other Endocrine Surgeries/Procedures: States she had surgery Jul 2018 on her pancreaus, Whipple surgery Neurological Surgical History: Reports: None Musculoskeletal Surgical History: Reports: None Oncologic Surgical History: Reports: None Dermatological Surgical History: Reports: None Social & Family History - Family History Family Medical History: No Pertinent Family History HEENT: Reports: Impaired Vision Cardiac: Reports: CAD, Heart Murmur, Hypertension, Pacemaker Respiratory: Reports: COPD GI: Reports: None - Tobacco Use Tobacco Use Status *Q: Never Tobacco User - Caffeine Use Caffeine Use: Reports: None Caffeine Use Comment: 3 CUPS TYPICAL - Recreational Drug Use Recreational Drug Use: No - Living Situation & Occupation Living situation: Reports: with Family Review of Systems - Review of Systems Review Of Systems: Comprehensive ROS is negative, except as noted in HPI. ED EXAM, GENERAL - Physical Exam Exam: See Below Exam Limited By: No Limitations General Appearance: Alert, Moderate Distress Eye Exam: Bilateral Eye: EOMI, Normal Inspection, PERRL (3mm) Ears: Normal External Exam, Hearing Grossly Normal Nose: Normal Inspection, Normal Mucosa, No Blood Throat/Mouth: Normal Inspection, Normal Oropharynx, Normal Voice, No Airway Compromise Head: Atraumatic, Normocephalic Neck: Normal Inspection, Supple, Non-Tender, Full Range of Motion. No: Lymphadenopathy (L), Lymphadenopathy (R) Respiratory/Chest: No Respiratory Distress, Lungs Clear, Normal Breath Sounds, No Accessory Muscle Use, Chest Non-Tender Cardiovascular: Normal Peripheral Pulses, Regular Rate, Rhythm, No Edema, No Gallop, No JVD, No Murmur, No Rub Peripheral Pulses: 2+: Radial (L), Radial (R) GI/Abdominal: Normal Bowel Sounds, Soft, Non-Tender, No Distention, No Abnormal Bruit, No Mass, Pelvis Stable (Female) Exam: Deferred Rectal (Female) Exam: Deferred Back Exam: Normal Inspection, Full Range of Motion Extremities: No Pedal Edema, Normal Capillary Refill, Leg Pain (To left lateral knee and right anterior knee), Limited Range of Motion. No: Joint Swelling, Increased Warmth, Mottled, Pallor, Redness Neurological: Alert, Oriented, CN II-XII Intact, Normal Cognition, No Motor/Sensory Deficits, Abnormal Gait (Limping gait) Psychiatric: Normal Affect, Normal Mood Skin Exam: Warm, Dry, Intact, Normal Color, No Rash. No: Cyanosis, Ecchymosis, Erythema, Jaundice, Mottled, Pallor, Petechiae Lymphatic: No Adenopathy Course - Vital Signs Last Recorded V/S: Last Vital Signs Temp 98.1 F 07/07/21 12:42 Pulse 95 07/07/21 12:42 Resp 16 07/07/21 12:42 BP 109/58 L 07/07/21 12:42 Pulse Ox 99 07/07/21 12:42 - Orders/Labs/Meds Meds: Medications Discontinued Medications Generic Name Dose Route Start Last Admin Trade Name Freq PRN Reason Stop Dose Admin Hydromorphone HCl 1 mg 07/07/21 13:02 07/07/21 13:15 Hydromorphone 1 Mg/Ml Syringe IVPUSH 07/07/21 13:03 1 mg ONETIME ONE Administration Ondansetron HCl 4 mg 07/07/21 13:02 07/07/21 13:15 Ondansetron 4 Mg/2 Ml Sdv IVPUSH 07/07/21 13:03 4 mg ONETIME ONE Administration - Radiology Interpretation Free Text/Narrative:: [facility] [place] [facility] Final Radiology Report Call: [phone] assistance Online chat: [email or web address] Managment Name: AUBREY ELLIOTT Age: 61Years F Date: 07/07/2021 SSN: -- : 1960 Study: CR KNEE 1V OR 2V LT Requesting Physician: Mariana Ramachandran Images: 4 Addl Studies: Provided Clinical History: Fall onto left knee; Pain with weight bearing Contrast: Contrast Medium: Contrast Amount: Contrast Method: CONFIDENTIALITY STATEMENT This report is intended only for use by the referring physician, and only in accordance with law. If you received this in error, call [phone]. Page 1 of 1 PROCEDURE INFORMATION: Exam: XR Left Knee Exam date and time: 07/07/2021 12:21 PM Age: 61 years old Clinical indication: Injury or trauma; Fall; Fracture, traumatic; Closed fracture; Fibula; Left; Injury date: Today; Additional info: Fall onto left knee; Pain with weight bearing TECHNIQUE: Imaging protocol: XR Left knee. Views: 1 or 2 views. COMPARISON: No relevant prior studies available. FINDINGS: Bones/joints: An obliquely oriented fracture of the proximal fibula is identified. This is approximately 5 cm below the proximal fibular head. The fibular fracture is mildly offset and angulated. There is diffuse decrease in overall bone mineral density. No tibia fractures are identified. Soft tissues: Normal. IMPRESSION: 1. Mildly offset and angulated proximal fibular fracture. The proximal tibia appears to be intact. Thank you for allowing us to participate in the care of your patient. Dictated and Authenticated by: Daniel Kramer MD 07/07/2021 1:01 PM Central Time ([place] & [place]) - Re-Assessments/Exams Free Text/Narrative Re-Assessment/Exam: 07/07/21 Xray of left knee obtained. Case discussed with Dr. Brewer, orthopedic surgeon at [facility] in [place], who recommended knee immobilizer and toe-touch weight bearing with FWW. Dr. Brewer states he will see patient in clinic on Thursday. Findings of examination, imaging, and conversation with Dr. Brewer reviewed with patient. Will treat acute pain with Percocet. Discussed supportive cares for fibula fracture. Red flag signs and symptoms which would warrant reevaluation reviewed. Patient verbalized understanding and agreement with the plan of care. Departure - Departure Time of Disposition: 13:52 Disposition: Home, Self-Care 01 Condition: Fair Clinical Impression: Fall from ground level Closed left fibular fracture Qualifiers: Encounter type: initial encounter Fibula location: proximal Fracture morphology: unspecified fracture morphology Qualified Code(s): S82.832A - Other fracture of upper and lower end of left fibula, initial encounter for closed fracture - Discharge Information *PRESCRIPTION DRUG MONITORING PROGRAM REVIEWED*: Not Applicable *COPY OF PRESCRIPTION DRUG MONITORING REPORT IN PATIENT KARISHMA: Not Applicable Instructions: Tibial and Fibular Fractures, Fall Prevention in the Home, Adult Referrals: PCP,None [Primary Care Provider] - Forms: ED Department Discharge Additional Instructions: Rx: Percocet 1.) Follow up with Dr. Brewer, [facility] orthopedics, early Thursday. Call his office at [phone] early Thursday for appointment - call at 8 AM 2.) You may take an additional acetaminophen (Tylenol) 325mg when you take your Percocet. You may also take ibuprofen (Motrin/Advil) 600mg every six hours, as pain persists. You may stagger these medications so you are taking a dose every three hours. 3.) Apply ice to the affected area as pain and swelling persist. 4.) Toe-touch weight bearing with a front wheel walker until evaluated by orthopedic surgeon.
== END 2021-07-07 14:30 | disposition home or self-care (01) ==
LOC: DL.ED 11:49
DX: S82.832A Other fracture of upper and lower end of left fibula, initial encounter for closed fracture (principal); Z91.013 Allergy to seafood; Z79.899 Other long term (current) drug therapy; W01.0XXA Fall on same level from slipping, tripping and stumbling without subsequent striking against object, initial encounter; Y93.01 Activity, walking, marching and hiking
CPT/HCPCS: 73560-LT; 96374; 96375; 99283-25; 99284; J1170; J2405

== ENCOUNTER 2022-01-25 10:27 | Emergency (ER) | payer MEDICAID ==
[2022-01-25] MEDS ORDERED: Ondansetron 4 MG Tab.DIS PO ONE (10:28)
[2022-01-25 10:41] VITALS: BP 122/72; PULSE 85
[2022-01-25 11:42] LABS: CHLORIDE,CL 96 mmol/L (98-107); SODIUM,NA 129 mmol/L (136-145)
[2022-01-25] MEDS ORDERED: Ondansetron 4 MG/2 ML SDV ONE (11:57)
[2022-01-25] MEDS ORDERED: Metoclopramide 10 MG/2 ML SDV ONE (11:58)
[2022-01-25] MEDS ORDERED: Sodium Chloride 0.9% 1,000 ML IV ONE (12:01)
[2022-01-25] MEDS ORDERED: Metoclopramide 10 MG/2 ML SDV IVPUSH ONE (12:03)
[2022-01-25] MEDS ORDERED: Ondansetron 4 MG/2 ML SDV IVPUSH ONE (12:03)
[2022-01-25] MEDS ORDERED: Iopamidol 612 MG/ML 100 ML Bottle IVPUSH ONE (12:03)
[2022-01-25 12:42] LABS: AMPHETAMINES,URINE NEGATIVE (NEGATIVE); BARBITURATES,URINE NEGATIVE (NEGATIVE); BENZODIAZEPINE,URINE NEGATIVE (NEGATIVE); MDMA (ECSTASY), URINE NEGATIVE (NEGATIVE); METHADONE,URINE NEGATIVE (NEGATIVE); METHAMPHETAMINES,URINE NEGATIVE (NEGATIVE); OPIATES,URINE POSITIVE (NEGATIVE); OXYCODONE,URINE NEGATIVE (NEGATIVE); PHENCYCLIDINE,URINE NEGATIVE (NEGATIVE); TCA,URINE NEGATIVE (NEGATIVE)
[2022-01-25] MEDS ORDERED: Ondansetron 4 MG Tab.DIS ONE (13:49)
== END 2022-01-25 14:03 | disposition home or self-care (01) ==
LOC: DL.ED 10:27
DX: N83.202 Unspecified ovarian cyst, left side (principal); K66.0 Peritoneal adhesions (postprocedural) (postinfection); Z91.013 Allergy to seafood
CPT/HCPCS: 36415; 74177; 80053; 80305-QW; 80307; 81001; 83605; 83615; 83735; 84443; 85025; 86140; 96374; 96375; 99283; 99285-25; A9270-GY; J2405; J2765; J7030; Q9967

== ENCOUNTER 2022-03-18 11:27 | Inpatient (IN) | payer MEDICAID ==
[2022-03-18] MEDS ORDERED: Sodium Chloride 0.9% 1,000 ML IV ONE (11:58)
[2022-03-18 13:01] LABS: ANION GAP 19.2 mEq/L (7-13)
[2022-03-18 13:15] LABS: CORONAVIRUS COVID-19 NAA NEGATIVE (NEGATIVE)
[2022-03-18] MEDS ORDERED: cefTRIAXone 1 GM in Sodium Chloride 0.9% 50 ML IV ONE (15:26)
[2022-03-18] MEDS ORDERED: Polyethylene Glycol 3350 Powder 17 GM Packet PO PRN (15:38)
[2022-03-18] MEDS ORDERED: HYDROmorphone 0.5 MG/0.5 ML Syringe IVPUSH PRN (15:38)
[2022-03-18] MEDS ORDERED: Albuterol/Ipratropium 3.0-0.5 MG/3 ML Neb Soln NEB PRN (15:38)
[2022-03-18] MEDS ORDERED: Magnesium Hydroxide 400 MG/5 ML Susp 30 ML Cup PO PRN (15:38)
[2022-03-18] MEDS ORDERED: Acetaminophen 325 MG Tab PO PRN (15:38)
[2022-03-18] MEDS ORDERED: Bisacodyl 5 MG Tab PO PRN (15:38)
[2022-03-18] MEDS ORDERED: Ondansetron 4 MG/2 ML SDV IVPUSH PRN (15:38)
[2022-03-18] MEDS ORDERED: Sodium Chloride 0.9% 10 ML Syringe FLUSH PRN ×2 (16:41→17:18)
[2022-03-18] MEDS ORDERED: Sodium Chloride 0.9% 1,000 ML IV SCH (17:45)
[2022-03-18 19:43] LABS: ANION GAP 18.7 mEq/L (7-13)
[2022-03-18] MEDS: Zolpidem 5 MG Tab PO PRN (21:25)
[2022-03-18] MEDS ORDERED: Sodium Bicarbonate 100 MEQ in Dextrose 5% in Water 1,000 ML IV ONE ×2 (21:31)
[2022-03-18] MEDS ORDERED: LORazepam 0.5 MG Tab PO PRN (21:32)
[2022-03-18] MEDS ORDERED: NACL IV SCH (21:45)
[2022-03-18] MEDS ORDERED: DEXTROSE IV SCH (21:45)
[2022-03-18] MEDS ORDERED: SODIUM BICARBONATE IV SCH (21:45)
[2022-03-18] MEDS ORDERED: Sodium Bicarbonate 8.4% 50 MEQ/50 ML SDV ONE (22:07)
[2022-03-18] MEDS ORDERED: Sodium Bicarbonate 50 MEQ in Dextrose 5% in Water 1,000 ML IV SCH ×2 (22:30)
[2022-03-18] MEDS: diphenhydrAMINE 25 MG Tab PO SCH (22:49)
[2022-03-19] MEDS: Acetaminophen/oxyCODONE 325-5 MG Tab PO PRN ×2 (03:05→10:14)
[2022-03-19] MEDS: diphenhydrAMINE 25 MG Tab PO SCH ×5 (04:00→21:02)
[2022-03-19 06:43] LABS: ANION GAP 16.8 mEq/L (7-13)
[2022-03-19] MEDS ORDERED: cefTRIAXone 1 GM in Sodium Chloride 0.9% 50 ML IV SCH (09:00)
[2022-03-19] MEDS ORDERED: cefTRIAXone 1 GM Vial ONE (09:41)
[2022-03-19] MEDS: Saccharomyces Boulardii (Probiotic) 250 MG Cap PO SCH (10:12)
[2022-03-19] MEDS: Pantoprazole 40 MG Vial IVPUSH SCH (10:17)
[2022-03-19] MEDS: cefTRIAXone 1 GM in Sodium Chloride 0.9% 50 ML IV SCH ×2 (10:22)
[2022-03-19] MEDS ORDERED: Acetaminophen 500 MG Tab PO PRN (18:03)
[2022-03-19] MEDS ORDERED: Ibuprofen 600 MG Tab PO PRN (18:03)
[2022-03-19] MEDS ORDERED: Albuterol 6.7 GM Inhaler INH PRN (18:03)
[2022-03-19 19:05] LABS: ANION GAP 15.1 mEq/L (7-13)
[2022-03-19] MEDS: Zolpidem 5 MG Tab PO PRN (20:35)
[2022-03-20] MEDS: Acetaminophen/oxyCODONE 325-5 MG Tab PO PRN ×2 (02:14→08:54)
[2022-03-20] MEDS: diphenhydrAMINE 25 MG Tab PO SCH ×3 (03:55→09:37)
[2022-03-20 07:14] LABS: ANION GAP 16.9 mEq/L (7-13)
[2022-03-20] MEDS: Ferrous Sulfate 325 MG Tab PO SCH (08:53)
[2022-03-20] MEDS: Pantoprazole 40 MG Vial IVPUSH SCH (08:54)
[2022-03-20] MEDS: Cholecalciferol (Vitamin D3) 25 MCG Tab PO SCH (08:54)
[2022-03-20] MEDS: Mometasone Furoate Powder 220 MCG/Puff 14 Dose Inhaler INH SCH (08:54)
[2022-03-20] MEDS: Saccharomyces Boulardii (Probiotic) 250 MG Cap PO SCH (08:54)
[2022-03-20] MEDS: cefTRIAXone 1 GM in Sodium Chloride 0.9% 50 ML IV SCH (08:55)
[2022-03-20] MEDS ORDERED: Sodium Chloride 0.9% 1,000 ML IV SCH (09:30)
[2022-03-20] MEDS ORDERED: diphenhydrAMINE 25 MG Tab PO PRN (15:00)
[2022-03-20] MEDS ORDERED: Benzocaine/Cetylpyridinium/Menthol Lozenge MUCMEM PRN (21:30)
[2022-03-20] MEDS: Zolpidem 5 MG Tab PO PRN (21:47)
[2022-03-21] MEDS ORDERED: Pantoprazole 40 MG Tab.CR PO SCH (06:00)
[2022-03-21 08:32] VITALS: BP 117/58; PULSE 102
[2022-03-21] MEDS: cefTRIAXone 1 GM in Sodium Chloride 0.9% 50 ML IV SCH (08:41)
[2022-03-21] MEDS: Ferrous Sulfate 325 MG Tab PO SCH (08:42)
[2022-03-21] MEDS: Cholecalciferol (Vitamin D3) 25 MCG Tab PO SCH (08:42)
[2022-03-21] MEDS: Saccharomyces Boulardii (Probiotic) 250 MG Cap PO SCH (08:42)
[2022-03-21] MEDS: Mometasone Furoate Powder 220 MCG/Puff 14 Dose Inhaler INH SCH (08:50)
== END 2022-03-21 11:30 | disposition home or self-care (01) | DRG 683 ==
LOC: DL.ED 11:27 → DL.MS 15:43 → DL.ED 15:56
PROVIDERS: ADMIT Internal Medicine; ATTEND Internal Medicine
DX: N17.9 Acute kidney failure, unspecified (principal); N30.01 Acute cystitis with hematuria; E87.1 Hypo-osmolality and hyponatremia; E87.2 Acidosis; E46 Unspecified protein-calorie malnutrition; L40.9 Psoriasis, unspecified; K21.9 Gastro-esophageal reflux disease without esophagitis; M85.80 Other specified disorders of bone density and structure, unspecified site; M51.37 Other intervertebral disc degeneration, lumbosacral region; M71.129 Other infective bursitis, unspecified elbow; T39.395A Adverse effect of other nonsteroidal anti-inflammatory drugs [NSAID], initial encounter; E87.8 Other disorders of electrolyte and fluid balance, not elsewhere classified; R74.8 Abnormal levels of other serum enzymes; E88.09 Other disorders of plasma-protein metabolism, not elsewhere classified; B96.20 Unspecified Escherichia coli [E. coli] as the cause of diseases classified elsewhere; D69.6 Thrombocytopenia, unspecified; R73.9 Hyperglycemia, unspecified; Z87.891 Personal history of nicotine dependence; Z68.23 Body mass index [BMI] 23.0-23.9, adult; H54.7 Unspecified visual loss; D64.9 Anemia, unspecified; Z87.19 Personal history of other diseases of the digestive system; M19.90 Unspecified osteoarthritis, unspecified site; G89.29 Other chronic pain; M54.9 Dorsalgia, unspecified; F41.9 Anxiety disorder, unspecified; Z85.07 Personal history of malignant neoplasm of pancreas; Z91.013 Allergy to seafood; Z79.899 Other long term (current) drug therapy; Z20.822 Contact with and (suspected) exposure to COVID-19
CPT/HCPCS: 0240U; 36415; 71046; 76770; 80048; 80053; 81001; 83605; 83735; 83930; 83935; 84100; 84300; 85025; 86140; 87040; 87086; 87088; 87186; 96374; 97110-GP; 97116-GP; 97161-GP; 97165-GO; 99285-25; A9270-GY; C9113; J0696; J1170; J7030; J7060

== ENCOUNTER 2022-09-01 10:42 | Emergency (ER) | payer OTHER ==
[2022-09-01] MEDS ORDERED: Ketorolac 30 MG/ML SDV IM ONE (13:00)
[2022-09-01] MEDS ORDERED: Acetaminophen/oxyCODONE 325-5 MG Tab PO ONE (13:45)
[2022-09-26 16:47] LABS: CHLORIDE,CL 95 mmol/L (98-107); ESTIMATED GFR 72 mL/min (>=60); SODIUM,NA 129 mmol/L (136-145)
[2022-09-26 16:50] LABS: AMPHETAMINES,URINE NEGATIVE (NEGATIVE); BARBITURATES,URINE NEGATIVE (NEGATIVE); BENZODIAZEPINE,URINE NEGATIVE (NEGATIVE); MDMA (ECSTASY), URINE NEGATIVE (NEGATIVE); METHADONE,URINE NEGATIVE (NEGATIVE); METHAMPHETAMINES,URINE NEGATIVE (NEGATIVE); OPIATES,URINE NEGATIVE (NEGATIVE); OXYCODONE,URINE NEGATIVE (NEGATIVE); PHENCYCLIDINE,URINE NEGATIVE (NEGATIVE); TCA,URINE NEGATIVE (NEGATIVE)
== END 2022-09-01 13:44 | disposition home or self-care (01) ==
LOC: DL.ED 10:42
DX: S32.039A Unspecified fracture of third lumbar vertebra, initial encounter for closed fracture (principal); M25.562 Pain in left knee; W01.0XXA Fall on same level from slipping, tripping and stumbling without subsequent striking against object, initial encounter
CPT/HCPCS: 36415; 71045; 72100; 73030-LT; 73562-LT; 80053; 80305-QW; 81001; 85025; 96372; 99283; U0002

== ENCOUNTER 2023-01-07 14:35 | Emergency (ER) | payer MEDICAID, OTHER ==
[2023-01-07 15:02] VITALS: BP 191/105; PULSE 104
[2023-01-07] MEDS: Sodium Chloride 0.9% 10 ML Syringe FLUSH PRN (15:09)
[2023-01-07] MEDS: HYDROmorphone 1 MG/ML Syringe IVPUSH ONE (15:10)
[2023-01-07 15:13] LABS: AMPHETAMINES,URINE NEGATIVE (NEGATIVE); BARBITURATES,URINE NEGATIVE (NEGATIVE); BENZODIAZEPINE,URINE NEGATIVE (NEGATIVE); MDMA (ECSTASY), URINE NEGATIVE (NEGATIVE); METHADONE,URINE NEGATIVE (NEGATIVE); METHAMPHETAMINES,URINE NEGATIVE (NEGATIVE); OPIATES,URINE NEGATIVE (NEGATIVE); OXYCODONE,URINE NEGATIVE (NEGATIVE); PHENCYCLIDINE,URINE NEGATIVE (NEGATIVE); TCA,URINE NEGATIVE (NEGATIVE)
[2023-01-07] MEDS: Cyclobenzaprine 10 MG Tab PO ONE (15:48)
== END 2023-01-07 16:50 | disposition home or self-care (01) ==
LOC: DL.ED 14:35
DX: S32.030A Wedge compression fracture of third lumbar vertebra, initial encounter for closed fracture (principal); N30.01 Acute cystitis with hematuria; Z91.013 Allergy to seafood; X50.1XXA Overexertion from prolonged static or awkward postures, initial encounter
CPT/HCPCS: 72100; 80305-QW; 81001; 87086; 87088; 87186; 96374; 99283-25; 99284; A9270-GY; J1170; J3490

== ENCOUNTER 2023-01-12 19:48 | Emergency (ER) | payer MEDICAID, OTHER ==
[2023-01-12 20:12] VITALS: BP 144/91; PULSE 116
[2023-01-12] MEDS: HYDROmorphone 1 MG/ML Syringe IM ONE (20:22)
== END 2023-01-12 20:37 | disposition home or self-care (01) ==
LOC: DL.ED 19:48
DX: G89.29 Other chronic pain (principal); M54.50 Low back pain, unspecified; Z91.013 Allergy to seafood
CPT/HCPCS: 96372; 99283; J1170

== ENCOUNTER 2023-01-15 02:20 | Emergency (ER) | payer OTHER ==
[2023-01-15] MEDS ORDERED: Orphenadrine 60 MG/2 ML Inj IM ONE (02:32)
[2023-01-15] MEDS ORDERED: HYDROmorphone 1 MG/ML Syringe IM ONE (02:33)
[2023-01-15 02:34] VITALS: BP 149/115; PULSE 122
== END 2023-01-15 03:43 | disposition home or self-care (01) ==
LOC: DL.ED 02:20
DX: M54.50 Low back pain, unspecified (principal); G89.29 Other chronic pain; Z91.013 Allergy to seafood
CPT/HCPCS: 96372; 99284; J1170; J2360

== ENCOUNTER 2023-02-23 22:43 | Emergency (ER) | payer SELFPAY ==
[2023-02-23] MEDS: Sodium Chloride 0.9% 1,000 ML IV ONE (22:44)
[2023-02-23 23:02] VITALS: BP 153/83; PULSE 138
[2023-02-23 23:26] LABS: AMPHETAMINES,URINE NEGATIVE (NEGATIVE); BARBITURATES,URINE NEGATIVE (NEGATIVE); BENZODIAZEPINE,URINE NEGATIVE (NEGATIVE); MDMA (ECSTASY), URINE NEGATIVE (NEGATIVE); METHADONE,URINE NEGATIVE (NEGATIVE); METHAMPHETAMINES,URINE NEGATIVE (NEGATIVE); OPIATES,URINE NEGATIVE (NEGATIVE); OXYCODONE,URINE NEGATIVE (NEGATIVE); PHENCYCLIDINE,URINE NEGATIVE (NEGATIVE); TCA,URINE NEGATIVE (NEGATIVE)
[2023-02-23 23:43] LABS: ANION GAP 13.9 mEq/L (7-13)
[2023-02-23] MEDS: HYDROmorphone 0.5 MG/0.5 ML Syringe IVPUSH ONE (23:45)
[2023-02-23] MEDS: Acetaminophen 500 MG Tab PO ONE (23:46)
[2023-02-23 23:51] LABS: CORONAVIRUS COVID-19 NAA NEGATIVE (NEGATIVE); RESPIRATORY SYNCYTIAL VIR NAA NEGATIVE (NEGATIVE)
[2023-02-23] MEDS: Iopamidol 612 MG/ML 100 ML Bottle IVPUSH ONE (23:51)
[2023-02-24] MEDS ORDERED: Ondansetron 4 MG Tab.DIS ONE (03:15)
[2023-02-24] MEDS: Ondansetron 4 MG Tab.DIS PO ONE (03:16)
== END 2023-02-24 03:26 | disposition home or self-care (01) ==
LOC: DL.ED 22:43
DX: M48.54XA Collapsed vertebra, not elsewhere classified, thoracic region, initial encounter for fracture (principal); K52.9 Noninfective gastroenteritis and colitis, unspecified; N83.202 Unspecified ovarian cyst, left side; Z91.013 Allergy to seafood; Z20.822 Contact with and (suspected) exposure to COVID-19
CPT/HCPCS: 0241U; 36415; 74177; 80053; 80305-QW; 80307; 81001; 82150; 83605; 83690; 85025; 87040; 96361; 96374; 99284; 99284-25; A9270-GY; J1170; J7030; Q9967

== ENCOUNTER 2023-03-09 18:10 | Emergency (ER) | payer OTHER ==
[2023-03-09 18:23] VITALS: BP 158/90; PULSE 92
[2023-03-09] MEDS: methylPREDNISolone Sodium Succinate 125 MG/2 ML SDV IM ONE (18:43)
[2023-03-09] MEDS: Orphenadrine 60 MG/2 ML Inj IM ONE (18:43)
[2023-03-09 18:47] LABS: METHAMPHETAMINES,URINE NEGATIVE (NEGATIVE)
[2023-03-09 18:48] LABS: AMPHETAMINES,URINE NEGATIVE (NEGATIVE); BARBITURATES,URINE NEGATIVE (NEGATIVE); BENZODIAZEPINE,URINE NEGATIVE (NEGATIVE); MDMA (ECSTASY), URINE NEGATIVE (NEGATIVE); METHADONE,URINE NEGATIVE (NEGATIVE); OPIATES,URINE NEGATIVE (NEGATIVE); OXYCODONE,URINE NEGATIVE (NEGATIVE); PHENCYCLIDINE,URINE NEGATIVE (NEGATIVE); TCA,URINE NEGATIVE (NEGATIVE)
[2023-03-09] MEDS: cefTRIAXone 1 GM, Lidocaine 1% 2.1 ML IM ONE ×2 (19:45)
== END 2023-03-09 19:54 | disposition home or self-care (01) ==
LOC: DL.ED 18:10
DX: M54.50 Low back pain, unspecified (principal); G89.29 Other chronic pain; M19.90 Unspecified osteoarthritis, unspecified site; Z87.891 Personal history of nicotine dependence; Z91.013 Allergy to seafood; Z79.899 Other long term (current) drug therapy
CPT/HCPCS: 36415; 80053; 80305-QW; 81001; 85025; 87086; 87088; 87186; 96372; 99283; 99284; J0696; J2360; J2930; J3360; J3490

== ENCOUNTER 2023-03-24 10:46 | Observation (INO) | payer MEDICAID ==
[2023-03-24] MEDS ORDERED: Sodium Chloride 0.9% 10 ML Syringe FLUSH PRN (10:51)
[2023-03-24] MEDS ORDERED: Dexamethasone 4 MG/ML SDV IVPUSH ONE (10:52)
[2023-03-24] MEDS ORDERED: Ondansetron 4 MG/2 ML SDV IV ONE (10:53)
[2023-03-24] MEDS ORDERED: Docusate Sodium 100 MG Cap PO PRN (13:06)
[2023-03-24] MEDS ORDERED: Polyethylene Glycol 3350 Powder 17 GM Packet PO PRN (13:06)
[2023-03-24] MEDS ORDERED: Acetaminophen 325 MG Tab PO PRN (13:06)
[2023-03-24] MEDS ORDERED: Bisacodyl 5 MG Tab PO PRN (13:06)
[2023-03-24] MEDS: HYDROmorphone 1 MG/ML Syringe IVPUSH PRN ×2 (13:57→19:56)
[2023-03-24] MEDS: Ondansetron 4 MG/2 ML SDV IVPUSH PRN ×2 (14:02→19:55)
[2023-03-24 14:06] LABS: ANION GAP 14.3 mEq/L (7-13)
[2023-03-24] MEDS: Acetaminophen/HYDROcodone 325-5 MG Tab PO PRN (16:31)
[2023-03-24] MEDS: Cyclobenzaprine 10 MG Tab PO PRN (19:57)
[2023-03-24] MEDS ORDERED: Zolpidem 5 MG Tab PO PRN (21:00)
[2023-03-24] MEDS ORDERED: Metoclopramide 10 MG/2 ML SDV IVPUSH PRN (22:51)
[2023-03-24] MEDS ORDERED: HYDROmorphone 1 MG/ML Syringe IVPUSH PRN (22:51)
[2023-03-25] MEDS: Cyclobenzaprine 10 MG Tab PO PRN (04:23)
[2023-03-25] MEDS: Ondansetron 4 MG/2 ML SDV IVPUSH PRN ×2 (04:24→12:39)
[2023-03-25 08:46] VITALS: BP 121/66; PULSE 79
[2023-03-25] MEDS: Acetaminophen/HYDROcodone 325-5 MG Tab PO PRN ×2 (08:55→12:59)
[2023-03-25] MEDS ORDERED: Enoxaparin 40 MG/0.4 ML Syringe SUBCUT SCH (09:00)
== END 2023-03-25 14:25 | disposition home or self-care (01) ==
LOC: DL.ED 10:46 → DL.MS 12:42 → DL.ED 12:50 → UNDOADMOB 12:54 → DL.MS 12:54 → UNDODISOB 03-25 14:25
PROVIDERS: ADMIT Internal Medicine; ATTEND Internal Medicine
DX: S32.020A Wedge compression fracture of second lumbar vertebra, initial encounter for closed fracture (principal); M19.90 Unspecified osteoarthritis, unspecified site; G89.29 Other chronic pain; F41.9 Anxiety disorder, unspecified; Z91.018 Allergy to other foods; Z79.2 Long term (current) use of antibiotics; Z79.899 Other long term (current) drug therapy; Z87.311 Personal history of (healed) other pathological fracture; Z98.890 Other specified postprocedural states
CPT/HCPCS: 36415; 72128; 80048; 85027; 96374; 96375; 97161; 97165; 99222; 99239; 99283; 99285; A9270; J1100; J1170; J1650; J2405; J2765; J3360; 96372; 96376; G0378; J3490

== ENCOUNTER 2023-03-27 21:12 | Emergency (ER) | payer SELFPAY ==
[2023-03-27 22:29] LABS: APPEARANCE,URINE CLEAR (CLEAR); BILIRUBIN,URINE NEGATIVE (NEGATIVE); COLOR,URINE YELLOW (YELLOW); GLUCOSE,URINE NEGATIVE (NEGATIVE); KETONES,URINE NEGATIVE (NEGATIVE); LEUKOCYTE ESTERASE,URINE NEGATIVE (NEGATIVE); NITRITE,URINE NEGATIVE (NEGATIVE); OCCULT BLOOD,URINE LARGE (NEGATIVE); PROTEIN,URINE 100 (NEGATIVE)
[2023-03-27 22:35] LABS: AMORPHOUS SEDIMENT,URINE FEW /HPF (NOT SEEN); BACTERIA,URINE MODERATE /HPF (0-FEW/HPF); EPITHELIAL CELLS,URINE FEW /HPF (NOT SEEN); MUCUS,URINE FEW /LPF (NOT SEEN); RBC,URINE SEMI-PACKED /HPF (0-5); WBC,URINE 0-5 /HPF (0-5/HPF)
[2023-03-27 22:46] VITALS: BP 128/74; PULSE 107
[2023-03-27] MEDS ORDERED: Acetaminophen 500 MG Tab PO ONE (22:47)
== END 2023-03-27 23:28 | disposition home or self-care (01) ==
LOC: DL.ED 21:12
DX: S32.020A Wedge compression fracture of second lumbar vertebra, initial encounter for closed fracture (principal); S22.080D Wedge compression fracture of T11-T12 vertebra, subsequent encounter for fracture with routine healing; R31.29 Other microscopic hematuria; Z91.013 Allergy to seafood
CPT/HCPCS: 81001; 99284; A9270

== ENCOUNTER 2023-05-13 17:46 | Emergency (ER) | payer OTHER ==
[2023-05-13] MEDS ORDERED: Naloxone 2 MG/2 ML Syringe IVPUSH PRN (18:06)
[2023-05-13 18:21] LABS: BASOPHILS PERCENT AUTO 0.3 % (0.0-1.0); EOSINOPHILS PERCENT AUTO 1.7 % (1.0-3.0); HEMATOCRIT 29.8 % (37.0-47.0); HEMOGLOBIN 9.7 g/dL (12.0-16.0); LYMPHOCYTES PERCENT AUTO 23.6 % (20.5-50.1); MEAN CORPUSCULAR HEMOGLOBIN 29.9 pg (27.0-34.0); MEAN CORPUSCULAR HGB CONC 32.6 g/dL (33.0-35.0); MONOCYTES PERCENT AUTO 8.6 % (2-8); NEUTROPHILS PERCENT AUTO 65.8 % (42.2-75.2); PLATELET COUNT,PLT 162 10^3/uL (150-450); RED BLOOD CELL COUNT 3.24 10^6/uL (4.2-5.4); WHITE BLOOD CELL COUNT,WBC 6.4 10^3/uL (5.0-10.0)
[2023-05-13] MEDS: fentaNYL 100 MCG/2 ML SDV IVPUSH ONE ×2 (18:32→21:39)
[2023-05-13 18:44] LABS: A/G RATIO 0.5; ALBUMIN 3.4 g/dL (3.4-5.0); ANION GAP 13.2 mEq/L (7-13); BILIRUBIN TOTAL 0.7 mg/dL (0.2-1.0); BUN/CREATININE RATIO 13.6 (No establ ref range); CALCIUM 8.8 mg/dL (8.5-10.1); CREATININE 1.32 mg/dL (0.55-1.02); EST CRCL DRUG DOSING (CG) 43.43 mL/min; POTASSIUM,K 4.2 mmol/L (3.5-5.1); PROTEIN TOTAL,TP 9.7 g/dL (6.4-8.2)
[2023-05-13 18:53] VITALS: BP 162/98; PULSE 89
[2023-05-13] MEDS ORDERED: Sodium Chloride 0.9% 10 ML Syringe FLUSH PRN (19:52)
[2023-05-13 21:22] LABS: APPEARANCE,URINE SLIGHTLY CLOUDY (CLEAR); BILIRUBIN,URINE NEGATIVE (NEGATIVE); COLOR,URINE AMBER (YELLOW); GLUCOSE,URINE NEGATIVE (NEGATIVE); KETONES,URINE NEGATIVE (NEGATIVE); LEUKOCYTE ESTERASE,URINE NEGATIVE (NEGATIVE); NITRITE,URINE NEGATIVE (NEGATIVE); OCCULT BLOOD,URINE LARGE (NEGATIVE); PROTEIN,URINE 30 (NEGATIVE)
[2023-05-13 21:31] LABS: BACTERIA,URINE FEW /HPF (0-FEW/HPF); EPITHELIAL CELLS,URINE FEW /HPF (NOT SEEN); RBC,URINE 75-100 /HPF (0-5); WBC,URINE 0-5 /HPF (0-5/HPF)
[2023-05-13] MEDS: Dexamethasone 4 MG/ML SDV IVPUSH ONE (21:43)
[2023-05-13] MEDS: Orphenadrine 60 MG/2 ML Inj IM ONE (21:45)
== END 2023-05-13 22:25 | disposition home or self-care (01) ==
LOC: DL.ED 17:46
DX: G89.18 Other acute postprocedural pain (principal); M54.50 Low back pain, unspecified; J45.909 Unspecified asthma, uncomplicated; Z91.013 Allergy to seafood
CPT/HCPCS: 36415; 72128; 72131; 80053; 81001; 85025; 96372; 96374; 96375; 96376; 99284; J1100; J2360; J3010

== ENCOUNTER 2023-08-07 14:23 | Emergency (ER) | payer SELFPAY ==
[2023-08-07] MEDS ORDERED: Sodium Chloride 0.9% 10 ML Syringe FLUSH PRN (14:39)
[2023-08-07 14:49] LABS: BASOPHILS PERCENT AUTO 0.2 % (0.0-1.0); HEMATOCRIT 30.5 % (37.0-47.0); LYMPHOCYTES PERCENT AUTO 13.4 % (20.5-50.1); MEAN CORPUSCULAR HEMOGLOBIN 29.2 pg (27.0-34.0); MEAN CORPUSCULAR HGB CONC 32.8 g/dL (33.0-35.0); MEAN CORPUSCULAR VOLUME 89.2 fL (80-100); MONOCYTES PERCENT AUTO 9.9 % (2-8); NEUTROPHILS PERCENT AUTO 75.5 % (42.2-75.2); PLATELET COUNT,PLT 157 10^3/uL (150-450); RED BLOOD CELL COUNT 3.42 10^6/uL (4.2-5.4); WHITE BLOOD CELL COUNT,WBC 11.6 10^3/uL (5.0-10.0)
[2023-08-07] MEDS ORDERED: Ondansetron 4 MG/2 ML SDV IVPUSH ONE (14:50)
[2023-08-07 15:08] LABS: INR 1.1 (0.9-1.2)
[2023-08-07 15:09] LABS: ALBUMIN 3.1 g/dL (3.4-5.0); ANION GAP 16.6 mEq/L (7-13); BUN/CREATININE RATIO 8.5 (No establ ref range); C-REACTIVE PROTEIN 5.23 ng/dL (<=0.30); CALCIUM 8.8 mg/dL (8.5-10.1); CREATININE 1.41 mg/dL (0.55-1.02); EST CRCL DRUG DOSING (CG) 40.66 mL/min; MAGNESIUM 1.9 mg/dL (1.8-2.4); POTASSIUM,K 3.6 mmol/L (3.5-5.1); PROTEIN TOTAL,TP 9.2 g/dL (6.4-8.2)
[2023-08-07 15:12] LABS: LACTIC ACID 1.6 mmol/L (0.4-2.0)
[2023-08-07 15:13] LABS: A/G RATIO 0.51
[2023-08-07] MEDS ORDERED: Sodium Chloride 0.9% 1,000 ML IV ONE ×2 (15:22→16:53)
[2023-08-07 16:35] LABS: APPEARANCE,URINE SLIGHTLY CLOUDY (CLEAR); BILIRUBIN,URINE NEGATIVE (NEGATIVE); COLOR,URINE AMBER (YELLOW); GLUCOSE,URINE NEGATIVE (NEGATIVE); KETONES,URINE NEGATIVE (NEGATIVE); LEUKOCYTE ESTERASE,URINE SMALL (NEGATIVE); NITRITE,URINE NEGATIVE (NEGATIVE); OCCULT BLOOD,URINE MODERATE (NEGATIVE); PH,URINE 6.5 (5.0-9.0); PROTEIN,URINE 100 (NEGATIVE)
[2023-08-07 16:44] LABS: BACTERIA,URINE FEW /HPF (0-FEW/HPF); EPITHELIAL CELLS,URINE FEW /HPF (NOT SEEN); RBC,URINE 75-100 /HPF (0-5)
[2023-08-07] MEDS ORDERED: Iopamidol 612 MG/ML 100 ML Bottle IVPUSH ONE (16:53)
[2023-08-07 17:03] VITALS: BP 148/86; PULSE 95
[2023-08-07] MEDS ORDERED: Iopamidol 755 Mg/ML 100 ML Bottle IVPUSH ONE (17:05)
[2023-08-07] MEDS ORDERED: HYDROmorphone 1 MG/ML Syringe IVPUSH ONE (17:34)
[2023-08-07] MEDS ORDERED: cefTRIAXone 1 GM Vial IVPUSH ONE (18:23)
[2023-08-07] MEDS ORDERED: Take Home: Ondansetron 4 MG Tab.DIS, 5 Tab Pack PO ONE (18:43)
== END 2023-08-07 19:41 | disposition home or self-care (01) ==
LOC: DL.ED 14:23
DX: B34.9 Viral infection, unspecified (principal); N39.0 Urinary tract infection, site not specified; Z20.822 Contact with and (suspected) exposure to COVID-19; Z91.013 Allergy to seafood; Z79.899 Other long term (current) drug therapy
CPT/HCPCS: 36415; 71045; 74177; 80053; 81001; 83605; 83735; 84145; 85025; 85610; 85730; 86140; 87086; 87804; 96361; 96374; 96375; 99284-25; J0696; J1170; J2405; J3490; J7030; Q0162; Q9967; U0002

== ENCOUNTER 2023-08-10 18:59 | Emergency (ER) | payer SELFPAY ==
[2023-08-10 19:58] LABS: BASOPHILS PERCENT AUTO 0.4 % (0.0-1.0); EOSINOPHILS PERCENT AUTO 2.6 % (1.0-3.0); HEMATOCRIT 29.5 % (37.0-47.0); HEMOGLOBIN 9.7 g/dL (12.0-16.0); LYMPHOCYTES PERCENT AUTO 25.3 % (20.5-50.1); MEAN CORPUSCULAR HEMOGLOBIN 29.3 pg (27.0-34.0); MEAN CORPUSCULAR HGB CONC 32.9 g/dL (33.0-35.0); MEAN CORPUSCULAR VOLUME 89.1 fL (80-100); MONOCYTES PERCENT AUTO 9.8 % (2-8); NEUTROPHILS PERCENT AUTO 61.9 % (42.2-75.2); PLATELET COUNT,PLT 170 10^3/uL (150-450); RED BLOOD CELL COUNT 3.31 10^6/uL (4.2-5.4); WHITE BLOOD CELL COUNT,WBC 5.3 10^3/uL (5.0-10.0)
[2023-08-10 20:22] LABS: ALBUMIN 3.2 g/dL (3.4-5.0); ALKALINE PHOSPHATASE 166 U/L (46-116); BILIRUBIN TOTAL 0.4 mg/dL (0.2-1.0); BLOOD UREA NITROGEN,BUN 8 mg/dL (7-18); CHLORIDE,CL 100 mmol/L (98-107); GLUCOSE RANDOM 108 mg/dL (70-99); POTASSIUM,K 3.2 mmol/L (3.5-5.1); SODIUM,NA 135 mmol/L (136-145)
[2023-08-10 20:35] LABS: LIPASE 126 U/L (16-77)
[2023-08-10 21:18] LABS: AMPHETAMINES,URINE NEGATIVE (NEGATIVE); BARBITURATES,URINE NEGATIVE (NEGATIVE); BENZODIAZEPINE,URINE NEGATIVE (NEGATIVE); MDMA (ECSTASY), URINE NEGATIVE (NEGATIVE); METHADONE,URINE NEGATIVE (NEGATIVE); METHAMPHETAMINES,URINE NEGATIVE (NEGATIVE); OPIATES,URINE NEGATIVE (NEGATIVE); OXYCODONE,URINE NEGATIVE (NEGATIVE); PHENCYCLIDINE,URINE NEGATIVE (NEGATIVE); TCA,URINE NEGATIVE (NEGATIVE)
[2023-08-10 21:32] LABS: A/G RATIO 0.55; ALANINE AMINOTRANSFERASE,ALT 19 U/L (14-59); ANION GAP 14.2 mEq/L (7-13); ASPARTATE AMNIOTRANSFERASE,AST 33 U/L (15-37); BUN/CREATININE RATIO 7.5 (No establ ref range); C-REACTIVE PROTEIN 1.91 ng/dL (<=0.30); CALCIUM 8.9 mg/dL (8.5-10.1); CARBON DIOXIDE,CO2 24 mmol/L (21-32); CREATININE 1.06 mg/dL (0.55-1.02); EST CRCL DRUG DOSING (CG) 54.09 mL/min; MAGNESIUM 1.8 mg/dL (1.8-2.4); TSH ULTRASENSITIVE 2.37 uIU/mL (0.36-3.74)
[2023-08-10 21:40] LABS: ESTIMATED GFR 59 mL/min (>=60); ETHANOL BLOOD MEDICAL < 3 mg/dL (0)
[2023-08-10] MEDS ORDERED: Iopamidol 612 MG/ML 100 ML Bottle IVPUSH ONE (22:02)
[2023-08-10] MEDS ORDERED: Potassium Chloride 10% 20 MEQ/15 ML Soln 15 ML UD Cup PO ONE (23:02)
[2023-08-10 23:32] VITALS: BP 138/89; PULSE 100
== END 2023-08-10 23:42 | disposition home or self-care (01) ==
LOC: DL.ED 18:59
DX: R20.2 Paresthesia of skin (principal); N83.202 Unspecified ovarian cyst, left side; D64.9 Anemia, unspecified; E87.6 Hypokalemia; E87.1 Hypo-osmolality and hyponatremia; K76.0 Fatty (change of) liver, not elsewhere classified; M43.9 Deforming dorsopathy, unspecified; J45.909 Unspecified asthma, uncomplicated; Z79.899 Other long term (current) drug therapy; Z91.013 Allergy to seafood
CPT/HCPCS: 36415; 71045; 74177; 80053; 80305-QW; 80307; 82607; 83690; 83735; 84443; 84484; 85025; 86140; 93005; 93010; 99284; 99285; A9270-GY; Q9967

== ENCOUNTER 2023-10-06 17:37 | Emergency (ER) | payer OTHER ==
[2023-10-06 18:21] VITALS: BP 142/94; PULSE 101
== END 2023-10-06 18:43 | disposition home or self-care (01) ==
LOC: DL.ED 17:37
DX: M79.10 Myalgia, unspecified site (principal); J45.909 Unspecified asthma, uncomplicated; Z79.899 Other long term (current) drug therapy; Z91.013 Allergy to seafood
CPT/HCPCS: 99282; 99283

== ENCOUNTER 2024-05-08 19:11 | Emergency (ER) | payer MEDICARE ==
[2024-05-08 19:55] VITALS: BP 166/98; PULSE 111
[2024-05-08 20:15] LABS: BILIRUBIN,URINE LARGE (NEGATIVE); COLOR,URINE RED (YELLOW); GLUCOSE,URINE NEGATIVE (NEGATIVE); KETONES,URINE 15 (NEGATIVE); LEUKOCYTE ESTERASE,URINE LARGE (NEGATIVE); NITRITE,URINE POSITIVE (NEGATIVE); OCCULT BLOOD,URINE LARGE (NEGATIVE); PH,URINE 5.5 (5.0-9.0); PROTEIN,URINE >=300 (NEGATIVE)
[2024-05-08 20:16] LABS: APPEARANCE,URINE CLOUDY (CLEAR)
[2024-05-08 20:19] LABS: AMORPHOUS SEDIMENT,URINE FEW /HPF (NOT SEEN); BACTERIA,URINE FEW /HPF (0-FEW/HPF); EPITHELIAL CELLS,URINE FEW /HPF (NOT SEEN); MUCUS,URINE FEW /LPF (NOT SEEN); RBC,URINE PACKED /HPF (0-5)
[2024-05-08] MEDS: Sodium Chloride 0.9% 10 ML Syringe FLUSH PRN (22:49)
[2024-05-08] MEDS: Sodium Chloride 0.9% 1,000 ML IV ONE (22:52)
[2024-05-08 22:55] LABS: BASOPHILS PERCENT AUTO 0.2 % (0.0-1.0); EOSINOPHILS PERCENT AUTO 0.9 % (1.0-3.0); HEMATOCRIT 32.4 % (37.0-47.0); HEMOGLOBIN 10.8 g/dL (12.0-16.0); LYMPHOCYTES PERCENT AUTO 8.9 % (20.5-50.1); MEAN CORPUSCULAR HEMOGLOBIN 30.1 pg (27.0-34.0); MEAN CORPUSCULAR HGB CONC 33.3 g/dL (33.0-35.0); MEAN CORPUSCULAR VOLUME 90.3 fL (80-100); MONOCYTES PERCENT AUTO 7.9 % (2-8); NEUTROPHILS PERCENT AUTO 82.1 % (42.2-75.2); PLATELET COUNT,PLT 137 10^3/uL (150-450); RED BLOOD CELL COUNT 3.59 10^6/uL (4.2-5.4); WHITE BLOOD CELL COUNT,WBC 12.1 10^3/uL (5.0-10.0)
[2024-05-08 23:14] LABS: ALBUMIN 2.6 g/dL (3.4-5.0); BILIRUBIN TOTAL 2.1 mg/dL (0.2-1.0); BUN/CREATININE RATIO 10.9 (No establ ref range); CALCIUM 8.5 mg/dL (8.5-10.1); CREATININE 1.84 mg/dL (0.55-1.02); EST CRCL DRUG DOSING (CG) 30.75 mL/min; MAGNESIUM 1.9 mg/dL (1.8-2.4); PROTEIN TOTAL,TP 9.3 g/dL (6.4-8.2)
[2024-05-08 23:19] LABS: LACTIC ACID 1.1 mmol/L (0.4-2.0)
[2024-05-08 23:22] LABS: A/G RATIO 0.39
[2024-05-09] MEDS: Sodium Chloride 0.9% 1,000 ML IV ONE (00:02)
[2024-05-09] MEDS: Piperacillin/Tazobactam 2.25 GM in Sodium Chloride 0.9% 50 ML IV ONE (00:10)
[2024-05-09] MEDS: Acetaminophen 325 MG Tab PO ONE (00:10)
[2024-05-09 01:14] LABS: LACTIC ACID 1.3 mmol/L (0.4-2.0)
[2024-05-09] MEDS: Benzonatate 100 MG Cap PO ONE (02:24)
== END 2024-05-09 03:12 ==
LOC: DL.ED 19:11
DX: A41.9 Sepsis, unspecified organism (principal); R65.20 Severe sepsis without septic shock; N17.9 Acute kidney failure, unspecified; E87.1 Hypo-osmolality and hyponatremia; J40 Bronchitis, not specified as acute or chronic; N12 Tubulo-interstitial nephritis, not specified as acute or chronic; Z79.899 Other long term (current) drug therapy; Z91.013 Allergy to seafood
CPT/HCPCS: 36415; 70490; 71045; 74176; 80053; 81001; 83605; 83735; 83880; 85025; 87040; 87081; 87086; 87088; 87186; 87430; 93005; 93010; 99285; A9270; J2543; J3490; J7030; 96361; 96365

== ENCOUNTER 2024-09-19 14:58 | Emergency (ER) | payer MEDICARE ==
[2024-09-19 16:10] LABS: BASOPHILS PERCENT AUTO 0.2 % (0.0-1.0); EOSINOPHILS PERCENT AUTO 0.8 % (1.0-3.0); HEMATOCRIT 30.2 % (37.0-47.0); HEMOGLOBIN 9.8 g/dL (12.0-16.0); LYMPHOCYTES PERCENT AUTO 19.7 % (20.5-50.1); MEAN CORPUSCULAR HEMOGLOBIN 31.4 pg (27.0-34.0); MEAN CORPUSCULAR HGB CONC 32.5 g/dL (33.0-35.0); MEAN CORPUSCULAR VOLUME 96.8 fL (80-100); MONOCYTES PERCENT AUTO 9.5 % (2-8); NEUTROPHILS PERCENT AUTO 69.8 % (42.2-75.2); PLATELET COUNT,PLT 106 10^3/uL (150-450); RED BLOOD CELL COUNT 3.12 10^6/uL (4.2-5.4); WHITE BLOOD CELL COUNT,WBC 5.2 10^3/uL (5.0-10.0)
[2024-09-19] MEDS: Acetaminophen 500 MG Tab PO ONE (16:26)
[2024-09-19 16:38] LABS: ALANINE AMINOTRANSFERASE,ALT 17 U/L (14-59); ALBUMIN 3.1 g/dL (3.4-5.0); ALKALINE PHOSPHATASE 175 U/L (46-116); ANION GAP 12.7 mEq/L (7-13); ASPARTATE AMNIOTRANSFERASE,AST 36 U/L (15-37); BILIRUBIN TOTAL 0.6 mg/dL (0.2-1.0); BLOOD UREA NITROGEN,BUN 13 mg/dL (7-18); BUN/CREATININE RATIO 10.2 (No establ ref range); CALCIUM 8.8 mg/dL (8.5-10.1); CARBON DIOXIDE,CO2 25 mmol/L (21-32); CHLORIDE,CL 103 mmol/L (98-107); CREATININE 1.27 mg/dL (0.55-1.02); EST CRCL DRUG DOSING (CG) 39.85 mL/min; GLUCOSE RANDOM 99 mg/dL (70-99); POTASSIUM,K 3.7 mmol/L (3.5-5.1); PROTEIN TOTAL,TP 9.4 g/dL (6.4-8.2); SODIUM,NA 137 mmol/L (136-145)
[2024-09-19 16:39] LABS: A/G RATIO 0.49; C-REACTIVE PROTEIN < 0.50 ng/dL (<=0.50); ESTIMATED GFR 47 mL/min (>=60)
[2024-09-19 16:41] LABS: B-TYPE NATRIURETIC PEPTIDE,BNP 34 pg/ml (0-100); LACTIC ACID 1.2 mmol/L (0.4-2.0)
[2024-09-19] MEDS: Azithromycin 250 MG Tab PO ONE (18:45)
[2024-09-19 18:51] VITALS: BP 151/81; PULSE 99
== END 2024-09-19 18:59 | disposition home or self-care (01) ==
LOC: DL.ED 14:58
DX: J44.1 Chronic obstructive pulmonary disease with (acute) exacerbation (principal); J06.9 Acute upper respiratory infection, unspecified; H65.93 Unspecified nonsuppurative otitis media, bilateral; J45.909 Unspecified asthma, uncomplicated; Z86.16 Personal history of COVID-19; Z91.013 Allergy to seafood; Z79.51 Long term (current) use of inhaled steroids; Z79.891 Long term (current) use of opiate analgesic; Z79.899 Other long term (current) drug therapy
CPT/HCPCS: 71045; 80053; 83605; 83880; 84484; 85025; 86140; 87428; 99284; A9270

== ENCOUNTER 2024-12-20 12:27 | Emergency (ER) | payer MEDICARE, OTHER ==
[2024-12-20] MEDS: Diazepam 5 MG Tab PO ONE (13:13)
[2024-12-20] MEDS: Aluminum Hydroxide/Magnesium Hydroxide/Simethicone Susp 30 ML Cup PO ONE (13:13)
[2024-12-20] MEDS: Lidocaine 5% 700 MG Patch TOP ONE (13:14)
[2024-12-20] MEDS: Acetaminophen 500 MG Tab PO ONE (13:14)
[2024-12-20 13:20] VITALS: BP 156/85; PULSE 82
[2024-12-20] MEDS: Lidocaine 2% Viscous Solution 15 ML UD PO ONE (14:35)
[2024-12-20] MEDS: oxyCODONE 5 MG Tab PO ONE (14:35)
[2024-12-20] MEDS: Famotidine 20 MG Tab PO ONE (14:35)
== END 2024-12-20 14:43 | disposition home or self-care (01) ==
LOC: DL.ED 12:27
DX: K21.9 Gastro-esophageal reflux disease without esophagitis (principal); Z86.16 Personal history of COVID-19; Z79.51 Long term (current) use of inhaled steroids; Z79.899 Other long term (current) drug therapy; Z91.013 Allergy to seafood
CPT/HCPCS: 99283; 99284; A9270-GY

== ENCOUNTER 2025-07-10 10:32 | Inpatient (IN) | payer MEDICARE, OTHER ==
[2025-07-10] MEDS: Phosphorus #1 250 MG Tab PO SCH (17:38)
[2025-07-10] MEDS: Acetaminophen/oxyCODONE 325-5 MG Tab PO PRN (17:38)
[2025-07-10] MEDS: Sucralfate Suspension 1 GM/10 ML Cup PO SCH (17:38)
[2025-07-10] MEDS: oxyCODONE ER 10 MG TAB.ER PO SCH (20:41)
[2025-07-11 07:57] LABS: BASOPHILS PERCENT AUTO 1.3 % (0.0-1.0); EOSINOPHILS PERCENT AUTO 5.4 % (1.0-3.0); LYMPHOCYTES PERCENT AUTO 29.5 % (20.5-50.1); MONOCYTES PERCENT AUTO 10.2 % (2-8); NEUTROPHILS PERCENT AUTO 53.6 % (42.2-75.2); PLATELET COUNT,PLT 102 10^3/uL (150-450); RED BLOOD CELL COUNT 2.88 10^6/uL (4.2-5.4); WHITE BLOOD CELL COUNT,WBC 3.2 10^3/uL (5.0-10.0)
[2025-07-11 08:16] LABS: ALANINE AMINOTRANSFERASE,ALT 27.0 U/L (14-59); ASPARTATE AMNIOTRANSFERASE,AST 67.0 U/L (15-37); BILIRUBIN TOTAL 1.3 mg/dL (0.2-1.0); BLOOD UREA NITROGEN,BUN 5.0 mg/dL (7-18); CARBON DIOXIDE,CO2 30.0 mmol/L (21-32); CHLORIDE,CL 106.0 mmol/L (98-107); CREATININE 1.14 mg/dL (0.55-1.02); EST CRCL DRUG DOSING (CG) 48.25 mL/min; GLUCOSE RANDOM 79.0 mg/dL (70-99); POTASSIUM,K 4.4 mmol/L (3.5-5.1); PROTEIN TOTAL,TP 7.7 g/dL (6.4-8.2); SODIUM,NA 139.0 mmol/L (136-145)
[2025-07-11 08:18] LABS: A/G RATIO 0.48; ESTIMATED GFR 53.0 mL/min (>=60)
[2025-07-11] MEDS: Lactulose Soln 10 GM/15 ML 30 ML UD Cup PO SCH (09:17)
[2025-07-11] MEDS: Potassium Chloride 10 MEQ Tab.ER PO SCH (09:18)
[2025-07-11] MEDS: Cholecalciferol (Vitamin D3) 25 MCG Tab PO SCH (09:21)
[2025-07-11] MEDS: Ondansetron 4 MG Tab.DIS PO PRN (10:14)
[2025-07-11] MEDS: BREYNA INH SCH (13:58)
[2025-07-13 11:30] LABS: BASOPHILS PERCENT AUTO 0.6 % (0.0-1.0); EOSINOPHILS PERCENT AUTO 3.9 % (1.0-3.0); LYMPHOCYTES PERCENT AUTO 21.9 % (20.5-50.1); MONOCYTES PERCENT AUTO 9.6 % (2-8); NEUTROPHILS PERCENT AUTO 64.0 % (42.2-75.2); PLATELET COUNT,PLT 117 10^3/uL (150-450); RED BLOOD CELL COUNT 2.87 10^6/uL (4.2-5.4); WHITE BLOOD CELL COUNT,WBC 3.1 10^3/uL (5.0-10.0)
[2025-07-13 11:59] LABS: ALANINE AMINOTRANSFERASE,ALT 26.0 U/L (14-59); ASPARTATE AMNIOTRANSFERASE,AST 64.0 U/L (15-37); BILIRUBIN TOTAL 1.1 mg/dL (0.2-1.0); BLOOD UREA NITROGEN,BUN 15.0 mg/dL (7-18); CARBON DIOXIDE,CO2 29.0 mmol/L (21-32); CHLORIDE,CL 105.0 mmol/L (98-107); CREATININE 1.59 mg/dL (0.55-1.02); EST CRCL DRUG DOSING (CG) 34.59 mL/min; GLUCOSE RANDOM 111.0 mg/dL (70-99); POTASSIUM,K 4.0 mmol/L (3.5-5.1); PROTEIN TOTAL,TP 7.7 g/dL (6.4-8.2); SODIUM,NA 139.0 mmol/L (136-145)
[2025-07-13 12:03] LABS: A/G RATIO 0.45; ESTIMATED GFR 36.0 mL/min (>=60)
[2025-07-13] MEDS ORDERED: Sodium Chloride 0.9% 10 ML Syringe FLUSH PRN (12:26)
[2025-07-13] MEDS: Sodium Chloride 0.9% 10 ML Syringe FLUSH SCH (21:55)
[2025-07-14 07:46] LABS: BLOOD UREA NITROGEN,BUN 13.0 mg/dL (7-18); CARBON DIOXIDE,CO2 27.0 mmol/L (21-32); CHLORIDE,CL 106.0 mmol/L (98-107); CREATININE 1.25 mg/dL (0.55-1.02); EST CRCL DRUG DOSING (CG) 43.97 mL/min; GLUCOSE RANDOM 92.0 mg/dL (70-99); POTASSIUM,K 4.1 mmol/L (3.5-5.1); SODIUM,NA 140.0 mmol/L (136-145)
[2025-07-14 07:48] LABS: ESTIMATED GFR 48.0 mL/min (>=60)
[2025-07-14] MEDS ORDERED: Lactulose Soln 10 GM/15 ML 30 ML UD Cup PO SCH (14:00)
[2025-07-14] MEDS: Lactulose Soln 10 GM/15 ML 30 ML UD Cup PO SCH (20:42)
[2025-07-15 08:01] LABS: BLOOD UREA NITROGEN,BUN 11.0 mg/dL (7-18); CARBON DIOXIDE,CO2 27.0 mmol/L (21-32); CHLORIDE,CL 108.0 mmol/L (98-107); CREATININE 1.27 mg/dL (0.55-1.02); EST CRCL DRUG DOSING (CG) 43.25 mL/min; ESTIMATED GFR 47.0 mL/min (>=60); GLUCOSE RANDOM 115.0 mg/dL (70-99); POTASSIUM,K 3.9 mmol/L (3.5-5.1); SODIUM,NA 141.0 mmol/L (136-145)
[2025-07-16 06:51] LABS: BLOOD UREA NITROGEN,BUN 8.0 mg/dL (7-18); CARBON DIOXIDE,CO2 25.0 mmol/L (21-32); CHLORIDE,CL 104.0 mmol/L (98-107); CREATININE 1.07 mg/dL (0.55-1.02); EST CRCL DRUG DOSING (CG) 51.81 mL/min; GLUCOSE RANDOM 91.0 mg/dL (70-99); POTASSIUM,K 4.2 mmol/L (3.5-5.1); SODIUM,NA 138.0 mmol/L (136-145)
[2025-07-16 06:53] LABS: ESTIMATED GFR 57.0 mL/min (>=60)
[2025-07-16] MEDS: Lactulose Soln 10 GM/15 ML 30 ML UD Cup PO SCH (08:07)
[2025-07-16] MEDS ORDERED: Lactulose Soln 10 GM/15 ML 30 ML UD Cup PO SCH (09:00)
[2025-07-17 06:21] LABS: BASOPHILS PERCENT AUTO 0.6 % (0.0-1.0); EOSINOPHILS PERCENT AUTO 4.8 % (1.0-3.0); LYMPHOCYTES PERCENT AUTO 17.4 % (20.5-50.1); MONOCYTES PERCENT AUTO 7.9 % (2-8); NEUTROPHILS PERCENT AUTO 69.3 % (42.2-75.2); PLATELET COUNT,PLT 139 10^3/uL (150-450); RED BLOOD CELL COUNT 2.73 10^6/uL (4.2-5.4); WHITE BLOOD CELL COUNT,WBC 5.1 10^3/uL (5.0-10.0)
[2025-07-17 06:22] LABS: BLOOD UREA NITROGEN,BUN 7.0 mg/dL (7-18); CARBON DIOXIDE,CO2 25.0 mmol/L (21-32); CHLORIDE,CL 106.0 mmol/L (98-107); CREATININE 1.06 mg/dL (0.55-1.02); EST CRCL DRUG DOSING (CG) 52.3 mL/min; GLUCOSE RANDOM 109.0 mg/dL (70-99); POTASSIUM,K 4.4 mmol/L (3.5-5.1); SODIUM,NA 139.0 mmol/L (136-145)
[2025-07-17 06:32] LABS: ESTIMATED GFR 58.0 mL/min (>=60)
[2025-07-17] MEDS: Lactulose Soln 10 GM/15 ML 30 ML UD Cup PO SCH (10:01)
[2025-07-18 12:21] VITALS: BP 135/70; PULSE 104
== END 2025-07-18 11:35 | disposition home or self-care (01) | DRG 947 ==
LOC: UNDOADMIN 15:30 → DL.MS 15:30
PROVIDERS: ADMIT Student in an Organized Health Care Education/Training Program; ATTEND Student in an Organized Health Care Education/Training Program
DX: R53.1 Weakness (principal); K85.90 Acute pancreatitis without necrosis or infection, unspecified; D61.818 Other pancytopenia; N17.9 Acute kidney failure, unspecified; H54.7 Unspecified visual loss; M19.90 Unspecified osteoarthritis, unspecified site; M81.0 Age-related osteoporosis without current pathological fracture; D64.9 Anemia, unspecified; F10.90 Alcohol use, unspecified, uncomplicated; J44.9 Chronic obstructive pulmonary disease, unspecified; E88.09 Other disorders of plasma-protein metabolism, not elsewhere classified; N18.9 Chronic kidney disease, unspecified; Z79.899 Other long term (current) drug therapy; Z98.890 Other specified postprocedural states; Z88.8 Allergy status to other drugs, medicaments and biological substances; Z91.013 Allergy to seafood
CPT/HCPCS: 36415; 71046; 80048; 80053; 82140; 82728; 82947; 83735; 85025; 94010; 97110-GO; 97110-GP; 97161-GP; 97165-GO; 97530-GO; 97530-GP; 99306; 99309; 99315; A9270-GY; J2765; J7042

== ENCOUNTER 2025-08-12 17:46 | Emergency (ER) | payer MEDICARE, OTHER ==
[2025-08-12] MEDS ORDERED: Sodium Chloride 0.9% 10 ML Syringe FLUSH PRN (18:03)
[2025-08-12 18:15] LABS: BASOPHILS PERCENT AUTO 0.2 % (0.0-1.0); EOSINOPHILS PERCENT AUTO 2.8 % (1.0-3.0); LYMPHOCYTES PERCENT AUTO 21.3 % (20.5-50.1); MONOCYTES PERCENT AUTO 6.1 % (2-8); NEUTROPHILS PERCENT AUTO 69.6 % (42.2-75.2); PLATELET COUNT,PLT 174 10^3/uL (150-450); RED BLOOD CELL COUNT 3.25 10^6/uL (4.2-5.4); WHITE BLOOD CELL COUNT,WBC 5.5 10^3/uL (5.0-10.0)
[2025-08-12] MEDS: Ondansetron 4 MG/2 ML SDV IVPUSH ONE (18:16)
[2025-08-12 18:20] VITALS: BP 131/79; PULSE 88
[2025-08-12 18:35] LABS: A/G RATIO 0.45; ALANINE AMINOTRANSFERASE,ALT 15 U/L (14-59); ASPARTATE AMNIOTRANSFERASE,AST 42 U/L (15-37); BILIRUBIN TOTAL 1.5 mg/dL (0.2-1.0); BLOOD UREA NITROGEN,BUN 9 mg/dL (7-18); CARBON DIOXIDE,CO2 26 mmol/L (21-32); CHLORIDE,CL 94 mmol/L (98-107); CREATININE 1.01 mg/dL (0.55-1.02); EST CRCL DRUG DOSING (CG) 50.77 mL/min; ESTIMATED GFR 61 mL/min (>=60); ETHANOL BLOOD MEDICAL < 3 mg/dL (0); GLUCOSE RANDOM 117 mg/dL (70-99); POTASSIUM,K 4.1 mmol/L (3.5-5.1); PROTEIN TOTAL,TP 9.0 g/dL (6.4-8.2); SODIUM,NA 127 mmol/L (136-145)
[2025-08-12 18:37] LABS: INR 1.0 (0.9-1.2)
[2025-08-12 18:38] LABS: LACTIC ACID 1.2 mmol/L (0.4-2.0)
[2025-08-12] MEDS: Take Home: Ondansetron 4 MG Tab.DIS, 5 Tab Pack PO ONE (19:09)
== END 2025-08-12 19:08 | disposition home or self-care (01) ==
LOC: DL.ED 17:46
DX: K52.9 Noninfective gastroenteritis and colitis, unspecified (principal); Z91.013 Allergy to seafood; Z88.5 Allergy status to narcotic agent; Z88.6 Allergy status to analgesic agent; Z79.899 Other long term (current) drug therapy
CPT/HCPCS: 36415; 74018; 80053; 80307; 82150; 83605; 83690; 83735; 85025; 85610; 86140; 96374; 99284; J2405; Q0162

== ENCOUNTER 2025-10-27 11:37 | Emergency (ER) | payer MEDICARE, OTHER ==
[2025-10-27] MEDS ORDERED: Sodium Chloride 0.9% 10 ML Syringe FLUSH PRN (11:51)
[2025-10-27] MEDS: Ondansetron 4 MG/2 ML SDV IVPUSH ONE ×2 (12:03→13:28)
[2025-10-27 12:24] LABS: BASOPHILS PERCENT AUTO 0.3 % (0.0-1.0); EOSINOPHILS PERCENT AUTO 0.6 % (1.0-3.0); LYMPHOCYTES PERCENT AUTO 12.9 % (20.5-50.1); MONOCYTES PERCENT AUTO 5.9 % (2-8); NEUTROPHILS PERCENT AUTO 80.3 % (42.2-75.2); PLATELET COUNT,PLT 60 10^3/uL (150-450); RED BLOOD CELL COUNT 3.32 10^6/uL (4.2-5.4); WHITE BLOOD CELL COUNT,WBC 3.4 10^3/uL (5.0-10.0)
[2025-10-27 12:43] LABS: INR 1.1 (0.9-1.2); PTT,PARTIAL THROMBOPLSTIN TIME 25.9 SEC (22.0-34.0)
[2025-10-27 12:47] LABS: ALANINE AMINOTRANSFERASE,ALT 16 U/L (14-59); ASPARTATE AMNIOTRANSFERASE,AST 49 U/L (15-37); BILIRUBIN TOTAL 1.4 mg/dL (0.2-1.0); BLOOD UREA NITROGEN,BUN 12 mg/dL (7-18); CARBON DIOXIDE,CO2 24 mmol/L (21-32); CHLORIDE,CL 106 mmol/L (98-107); CREATININE 1.42 mg/dL (0.55-1.02); EST CRCL DRUG DOSING (CG) 38.33 mL/min; GLUCOSE RANDOM 127 mg/dL (70-99); POTASSIUM,K 3.7 mmol/L (3.5-5.1); PROTEIN TOTAL,TP 8.7 g/dL (6.4-8.2); SODIUM,NA 144 mmol/L (136-145)
[2025-10-27 12:48] LABS: A/G RATIO 0.58; ESTIMATED GFR 41 mL/min (>=60)
[2025-10-27 12:52] LABS: LACTIC ACID 3.7 mmol/L (0.4-2.0)
[2025-10-27] MEDS: Iopamidol 612 MG/ML 100 ML Bottle IVPUSH ONE (13:02)
[2025-10-27] MEDS: Ketorolac 30 MG/ML SDV IVPUSH ONE (13:28)
[2025-10-27 14:00] LABS: APPEARANCE,URINE CLEAR (CLEAR); GLUCOSE,URINE NEGATIVE (NEGATIVE); OCCULT BLOOD,URINE LARGE (NEGATIVE)
[2025-10-27 14:10] LABS: EPITHELIAL CELLS,URINE FEW /HPF (NOT SEEN); YEAST,URINE FEW /HPF (NOT SEEN)
[2025-10-27 15:15] VITALS: BP 154/80; PULSE 131
== END 2025-10-27 15:08 | disposition home or self-care (01) ==
LOC: DL.ED 11:37
DX: R11.2 Nausea with vomiting, unspecified (principal); G89.29 Other chronic pain; M54.50 Low back pain, unspecified; R10.9 Unspecified abdominal pain; E86.0 Dehydration; J45.909 Unspecified asthma, uncomplicated; Z88.5 Allergy status to narcotic agent; Z88.8 Allergy status to other drugs, medicaments and biological substances; Z91.013 Allergy to seafood; Z79.899 Other long term (current) drug therapy; Z79.51 Long term (current) use of inhaled steroids
CPT/HCPCS: 36415; 74177; 80053; 81001; 83605; 83690; 83735; 84484; 85025; 85610; 85730; 86140; 87040; 87086; 93005; 96361; 96374; 96375; 96376; 99284; J2405; J2765; J7030; Q9967; J1885